=== PATIENT | female | born 1940 | race Caucasian/White ===

== ENCOUNTER 2018-01-21 00:49 | Emergency (ER) | payer MEDICARE ==
[2018-01-21] MEDS: NS 1,000 ML IV ×2 (01:45)
[2018-01-21] MEDS: ONDANSETRON 4MG/2ML VIAL (J2405) IV ×2 (01:49)
[2018-01-21 02:08] LABS: BASO % 0.1 % (0.0-1.0); HEMATOCRIT 36.7 % (36.0-47.0); HEMOGLOBIN 12.3 g/dl (12.0-15.5); IMMATURE GRANULOCYTE % 0.1 % (0-3.0); LYMPH # 0.5 10^3/uL (1.5-4.5); LYMPH % 7.6 % (24.0-44.0); MEAN CORPUSCULAR HEMOGLOBIN 29.9 pg (27.0-33.0); MEAN CORPUSCULAR HGB CONC 33.5 g/dl (32.0-36.5); MEAN CORPUSCULAR VOLUME 89.1 fl (80.0-96.0); MONO # 0.3 10^3/uL (0.0-0.8); MONO % 4.3 % (0.0-5.0); NEUTROPHILS # 5.9 10^3/uL (1.8-7.7); NEUTROPHILS % 87.9 % (36.0-66.0); PLATELET COUNT, AUTOMATED 150 10^3/uL (150-450); RED BLOOD COUNT 4.12 10^6/uL (4.00-5.40); RED CELL DISTRIBUTION WIDTH 13.1 % (11.5-14.5); WHITE BLOOD COUNT 6.8 10^3/uL (4.0-10.0)
[2018-01-21 02:32] LABS: ALBUMIN 3.4 GM/DL (3.2-5.2); ALBUMIN/GLOBULIN RATIO 1.06 (1.00-1.93); ALKALINE PHOSPHATASE 52 U/L (45-117); ALT/SGPT 18 U/L (12-78); ANION GAP 11 MEQ/L (8-16); AST/SGOT 20 U/L (7-37); BILIRUBIN,DIRECT 0.2 MG/DL (0.0-0.2); BILIRUBIN,TOTAL 0.5 MG/DL (0.2-1.0); BLOOD UREA NITROGEN 21 MG/DL (7-18); CALCIUM LEVEL 8.6 MG/DL (8.8-10.2); CARBON DIOXIDE LEVEL 25 MEQ/L (21-32); CHLORIDE LEVEL 104 MEQ/L (98-107); CK-MB VALUE MASS 1.6 NG/ML (<3.6); CPK CREATINE PHOSPHOKINASE 121 U/L (26-192); CREATININE FOR GFR 0.94 MG/DL (0.55-1.30); GLOMERULAR FILTRATION RATE > 60.0 (>39); GLUCOSE, FASTING 145 MG/DL (70-100); LIPASE 83 U/L (73-393); MB/CK RELATIVE INDEX 1.32 (< OR =4); POTASSIUM SERUM 3.2 MEQ/L (3.5-5.1); SODIUM LEVEL 140 MEQ/L (136-145); TOTAL PROTEIN 6.6 GM/DL (6.4-8.2); TROPONIN I < 0.02 NG/ML (< 0.10)
[2018-01-21] MEDS: KETOROLAC 30 MG/ML VIAL (J1885) IV ×2 (02:57)
[2018-01-21] MEDS: POTASSIUM CHLORIDE 10 MEQ SR TABLET PO ×2 (03:00)
== END 2018-01-21 03:57 | disposition home or self-care (01) ==
LOC: M ED 00:49
DX: K52.9 Noninfective gastroenteritis and colitis, unspecified (principal); E87.6 Hypokalemia
CPT/HCPCS: J2405

== ENCOUNTER → 2018-02-03 | Outpatient (REF) | payer MEDICARE | LOC: M LAB REF 18:27 | DX: R10.84 Generalized abdominal pain (principal); R19.7 Diarrhea, unspecified ==

== ENCOUNTER → 2018-02-03 | Outpatient (REF) | payer MEDICARE | LOC: M LAB REF 19:45 | DX: R19.7 Diarrhea, unspecified (principal); Z79.899 Other long term (current) drug therapy | CPT/HCPCS: 87086 ==

== ENCOUNTER → 2018-02-03 | Outpatient (CLI) | payer MEDICARE ==
[2018-02-03 12:21] LABS: BASO % 0.2 % (0.0-1.0); EOS % 0.5 % (0.0-3.0); HEMATOCRIT 41.3 % (36.0-47.0); HEMOGLOBIN 13.3 g/dl (12.0-15.5); IMMATURE GRANULOCYTE % 0.3 % (0-3.0); LYMPH # 1.6 10^3/uL (1.5-4.5); LYMPH % 17.9 % (24.0-44.0); MEAN CORPUSCULAR HGB CONC 32.2 g/dl (32.0-36.5); MEAN CORPUSCULAR VOLUME 93.2 fl (80.0-96.0); MONO # 0.5 10^3/uL (0.0-0.8); NEUTROPHILS # 6.7 10^3/uL (1.8-7.7); NEUTROPHILS % 75.1 % (36.0-66.0); PLATELET COUNT, AUTOMATED 242 10^3/uL (150-450); RED BLOOD COUNT 4.43 10^6/uL (4.00-5.40); RED CELL DISTRIBUTION WIDTH 13.5 % (11.5-14.5); WHITE BLOOD COUNT 8.9 10^3/uL (4.0-10.0)
[2018-02-03 14:14] LABS: ALBUMIN/GLOBULIN RATIO 1.18 (1.00-1.93); ALKALINE PHOSPHATASE 64 U/L (45-117); ALT/SGPT 31 U/L (12-78); ANION GAP 9 MEQ/L (8-16); AST/SGOT 21 U/L (7-37); BILIRUBIN,TOTAL 0.6 MG/DL (0.2-1.0); BLOOD UREA NITROGEN 16 MG/DL (7-18); CALCIUM LEVEL 10.6 MG/DL (8.8-10.2); CARBON DIOXIDE LEVEL 27 MEQ/L (21-32); CHLORIDE LEVEL 107 MEQ/L (98-107); CREATININE FOR GFR 0.81 MG/DL (0.55-1.30); FREE T4 1.21 NG/DL (0.76-1.46); GLOMERULAR FILTRATION RATE > 60.0 (>39); GLUCOSE, FASTING 113 MG/DL (70-100); POTASSIUM SERUM 3.8 MEQ/L (3.5-5.1); SODIUM LEVEL 143 MEQ/L (136-145); TOTAL PROTEIN 7.4 GM/DL (6.4-8.2)
== END ==
LOC: M ADAMS 09:09
DX: R10.84 Generalized abdominal pain (principal); R19.7 Diarrhea, unspecified
CPT/HCPCS: 84443

== ENCOUNTER 2018-02-10 07:28 | Emergency (ER) | payer MEDICARE ==
[2018-02-10] MEDS: NS 1,000 ML IV (07:57)
[2018-02-10] MEDS: ONDANSETRON 4MG/2ML VIAL (J2405) IV (08:00)
[2018-02-10 08:14] LABS: BASO % 0.3 % (0.0-1.0); EOS % 0.6 % (0.0-3.0); HEMATOCRIT 39.4 % (36.0-47.0); HEMOGLOBIN 12.8 g/dl (12.0-15.5); IMMATURE GRANULOCYTE % 0.5 % (0-3.0); LYMPH # 1.2 10^3/uL (1.5-4.5); LYMPH % 19.1 % (24.0-44.0); MEAN CORPUSCULAR HGB CONC 32.5 g/dl (32.0-36.5); MEAN CORPUSCULAR VOLUME 92.5 fl (80.0-96.0); MONO # 0.4 10^3/uL (0.0-0.8); MONO % 6.8 % (0.0-5.0); NEUTROPHILS # 4.7 10^3/uL (1.8-7.7); NEUTROPHILS % 72.7 % (36.0-66.0); PLATELET COUNT, AUTOMATED 224 10^3/uL (150-450); RED BLOOD COUNT 4.26 10^6/uL (4.00-5.40); RED CELL DISTRIBUTION WIDTH 13.4 % (11.5-14.5); WHITE BLOOD COUNT 6.5 10^3/uL (4.0-10.0)
[2018-02-10 08:38] LABS: ALBUMIN 3.9 GM/DL (3.2-5.2); ALBUMIN/GLOBULIN RATIO 1.18 (1.00-1.93); ALKALINE PHOSPHATASE 64 U/L (45-117); ALT/SGPT 28 U/L (12-78); ANION GAP 8 MEQ/L (8-16); AST/SGOT 22 U/L (7-37); BILIRUBIN,DIRECT 0.2 MG/DL (0.0-0.2); BILIRUBIN,TOTAL 0.7 MG/DL (0.2-1.0); BLOOD UREA NITROGEN 13 MG/DL (7-18); CALCIUM LEVEL 9.9 MG/DL (8.8-10.2); CARBON DIOXIDE LEVEL 27 MEQ/L (21-32); CHLORIDE LEVEL 107 MEQ/L (98-107); CREATININE FOR GFR 0.78 MG/DL (0.55-1.30); GLOMERULAR FILTRATION RATE > 60.0 (>39); GLUCOSE, FASTING 116 MG/DL (70-100); LIPASE 158 U/L (73-393); POTASSIUM SERUM 3.8 MEQ/L (3.5-5.1); SODIUM LEVEL 142 MEQ/L (136-145); TOTAL PROTEIN 7.2 GM/DL (6.4-8.2)
[2018-02-10 08:43] LABS: KETONE, URINE AUTO RFX NEGATIVE (NEGATIVE); LEUKOCYTE ESTERASE UR AUTO RFX NEGATIVE (NEGATIVE); NITRITE, URINE AUTO RFX NEGATIVE (NEGATIVE); RBC, URINE AUTO RFX 2 /HPF (0-3); SPECIFIC GRAVITY UR AUTO RFX 1.004 (1.002-1.035); SQUAM EPITHELIAL CELL UR AURFX 0 /HPF (0-6); WBC, URINE AUTO RFX 0 /HPF (0-3)
[2018-02-10] MEDS: GASTROGRAFIN SOLUTION 30ML PO ×2 (09:02→09:30)
[2018-02-10] MEDS ORDERED: ISOVUE-370 76% 100ML VIAL (Q9967) As Ordered (10:23)
[2018-02-10] MEDS: CIPROFLOXACIN 500 MG TAB PO (12:55)
[2018-02-10] MEDS: LISINOPRIL 20 MG TAB PO (12:56)
[2018-02-10] MEDS: metroNIDAZOLE (FLAGYL) 500 MG TAB PO (12:56)
[2018-02-10] MEDS: hydroCHLOROthiazide 25 MG TAB PO (12:56)
== END 2018-02-10 13:45 | disposition home or self-care (01) ==
LOC: M ED 07:28
DX: K57.90 Diverticulosis of intestine, part unspecified, without perforation or abscess without bleeding (principal); I10 Essential (primary) hypertension; K80.20 Calculus of gallbladder without cholecystitis without obstruction; M62.81 Muscle weakness (generalized); R26.89 Other abnormalities of gait and mobility; Z87.891 Personal history of nicotine dependence; Z79.899 Other long term (current) drug therapy
CPT/HCPCS: Q9963

== ENCOUNTER → 2018-02-24 | Outpatient (REF) | payer MEDICARE ==
[2018-02-24 12:25] LABS: BASO % 0.6 % (0.0-1.0); EOS # 0.1 10^3/uL (0.0-0.50); HEMOGLOBIN 12.5 g/dl (12.0-15.5); IMMATURE GRANULOCYTE % 0.6 % (0-3.0); LYMPH # 1.3 10^3/uL (1.5-4.5); LYMPH % 26.4 % (24.0-44.0); MEAN CORPUSCULAR HEMOGLOBIN 29.6 pg (27.0-33.0); MEAN CORPUSCULAR HGB CONC 32.9 g/dl (32.0-36.5); MEAN CORPUSCULAR VOLUME 89.8 fl (80.0-96.0); MONO # 0.4 10^3/uL (0.0-0.8); MONO % 8.5 % (0.0-5.0); NEUTROPHILS # 3.1 10^3/uL (1.8-7.7); NEUTROPHILS % 62.9 % (36.0-66.0); PLATELET COUNT, AUTOMATED 196 10^3/uL (150-450); RED BLOOD COUNT 4.23 10^6/uL (4.00-5.40); RED CELL DISTRIBUTION WIDTH 13.6 % (11.5-14.5); WHITE BLOOD COUNT 4.9 10^3/uL (4.0-10.0)
[2018-02-24 12:51] LABS: TOTAL 25(OH) VITAMIN D 17.8 NG/ML (30.0-100.0)
[2018-02-24 13:21] LABS: ALBUMIN 3.8 GM/DL (3.2-5.2); ALBUMIN/GLOBULIN RATIO 1.31 (1.00-1.93); ALKALINE PHOSPHATASE 47 U/L (45-117); ALT/SGPT 27 U/L (12-78); ANION GAP 10 MEQ/L (8-16); AST/SGOT 24 U/L (7-37); BILIRUBIN,TOTAL 0.7 MG/DL (0.2-1.0); BLOOD UREA NITROGEN 14 MG/DL (7-18); CALCIUM LEVEL 9.5 MG/DL (8.8-10.2); CARBON DIOXIDE LEVEL 28 MEQ/L (21-32); CHLORIDE LEVEL 105 MEQ/L (98-107); CHOLESTEROL LEVEL 193 MG/DL (<200); CHOLESTEROL RISK RATIO 2.924 (<5); CREATININE FOR GFR 0.73 MG/DL (0.55-1.30); GLOMERULAR FILTRATION RATE > 60.0 (>39); GLUCOSE, FASTING 107 MG/DL (70-100); HDL CHOLESTEROL 66 MG/DL (>40); NON-HDL-C 127 MG/DL; POTASSIUM SERUM 3.3 MEQ/L (3.5-5.1); SODIUM LEVEL 143 MEQ/L (136-145); TOTAL PROTEIN 6.7 GM/DL (6.4-8.2); TRIGLYCERIDES LEVEL 85 MG/DL (<150)
== END ==
LOC: M SFHCADAM 08:21
DX: K57.92 Diverticulitis of intestine, part unspecified, without perforation or abscess without bleeding (principal); I10 Essential (primary) hypertension; Z79.899 Other long term (current) drug therapy
CPT/HCPCS: 84443

== ENCOUNTER → 2018-09-28 | Outpatient (REF) | payer MEDICARE ==
[~2018-09-28] MED LIST: CIPR-249 PO; FLAG500T PO; ZEST1TAB3 PO; ZOFR4TAB14 PO
[2018-09-28 14:22] LABS: ALBUMIN 4.3 GM/DL (3.2-5.2); ALT/SGPT 21 U/L (12-78); BILIRUBIN,TOTAL 0.6 MG/DL (0.2-1.0); BLOOD UREA NITROGEN 24 MG/DL (7-18); CALCIUM LEVEL 9.9 MG/DL (8.8-10.2); CARBON DIOXIDE LEVEL 27 MEQ/L (21-32); CHLORIDE LEVEL 101 MEQ/L (98-107); CREATININE FOR GFR 0.88 MG/DL (0.55-1.30); GLOMERULAR FILTRATION RATE > 60.0 (>39); GLUCOSE, FASTING 90 MG/DL (70-100); POTASSIUM SERUM 3.8 MEQ/L (3.5-5.1); SODIUM LEVEL 138 MEQ/L (136-145); TOTAL PROTEIN 7.4 GM/DL (6.4-8.2)
[2018-09-28 14:30] LABS: TOTAL 25(OH) VITAMIN D 23.2 NG/ML (30.0-100.0)
[2018-09-28 15:14] LABS: HEMOGLOBIN A1c 5.7 %
== END ==
LOC: M SFHCADAM 10:41
PROVIDERS: ATTEND Physician Assistant Medical
DX: I10 Essential (primary) hypertension (principal); E55.9 Vitamin D deficiency, unspecified; R73.01 Impaired fasting glucose
CPT/HCPCS: 80053; 82306; 83036; G0463

== ENCOUNTER 2019-10-04 23:14 | Inpatient (IN) | payer MEDICARE ==
[~2019-10-04] VITALS: Ht 167.6 cm; Wt 83.5 kg
[2019-10-04] MEDS ORDERED: LOSA100T5 PO (23:20)
[2019-10-04] MEDS ORDERED: NS 500 ML IV ONE (23:45)
[2019-10-04] MEDS ORDERED: MORPHINE 2 MG/ML 1ML VIAL (J2270) IV ONE (23:45)
[2019-10-05 00:21] LABS: BASO % 0.1 % (0.0-1.0); EOS # 0.1 10^3/uL (0.0-0.5); EOS % 0.4 % (0.0-3.0); HEMATOCRIT 39.6 % (36.0-47.0); HEMOGLOBIN 13.3 g/dl (12.0-15.5); LYMPH # 1.9 10^3/uL (1.5-5.0); LYMPH % 14.4 % (24.0-44.0); MEAN CORPUSCULAR HEMOGLOBIN 30.5 pg (27.0-33.0); MEAN CORPUSCULAR HGB CONC 33.6 g/dl (32.0-36.5); MEAN CORPUSCULAR VOLUME 90.8 fl (80.0-96.0); MONO # 0.8 10^3/uL (0.0-0.8); MONO % 6.1 % (0.0-5.0); NEUTROPHILS # 10.6 10^3/uL (1.5-8.5); NEUTROPHILS % 78.3 % (36.0-66.0); PLATELET COUNT, AUTOMATED 262 10^3/uL (150-450); RED BLOOD COUNT 4.36 10^6/uL (4.00-5.40); WHITE BLOOD COUNT 13.5 10^3/uL (4.0-10.0)
[2019-10-05 00:46] LABS: CALCIUM LEVEL 10.3 MG/DL (8.8-10.2); CREATININE FOR GFR 1.1 MG/DL (0.55-1.30); GLOMERULAR FILTRATION RATE 50.9 (>32); POTASSIUM SERUM 3.8 MEQ/L (3.5-5.1)
--- NOTE | 2019-10-05 01:30 | REPVR ---
PROCEDURE INFORMATION: Exam: US Duplex Left Lower Extremity Veins, Limited Exam date and time: 10/05/2019 12:51 AM Age: 79 years old Clinical indication: Pain; Leg, upper; Left TECHNIQUE: Imaging protocol: Real-time Duplex ultrasound of the Left Lower Extremity with 2-D bowling scale, color Doppler flow and spectral waveform analysis with image documentation. Limited exam focused on the left lower extremity veins. COMPARISON: No relevant prior studies available. FINDINGS: Left deep veins: Unremarkable. The common femoral, femoral, proximal profunda femoral and popliteal veins are patent without thrombus. Normal Doppler waveforms. Normal compressibility and/or augmentation response. Left superficial veins: Unremarkable. Saphenofemoral junction is patent without thrombus. Soft tissues: There is a popliteal fossa cyst measuring 4.5 x 2.6 x 1.2 cm. IMPRESSION: 1. No deep vein thrombosis. 2. Popliteal fossa cyst. Electronically signed by: Oc James On 10/05/2019 01:30:13 AM
[2019-10-05] MEDS ORDERED: ISOVUE-370 76% 100ML VIAL (Q9967) As Ordered ONE (02:33)
--- NOTE | 2019-10-05 03:08 | REPVR ---
PROCEDURE INFORMATION: Exam: CT Abdomen And Pelvis With Contrast Exam date and time: 10/05/2019 2:23 AM Age: 79 years old Clinical indication: Pain; Other: Left thigh TECHNIQUE: Imaging protocol: Computed tomography of the abdomen and pelvis with intravenous contrast. Radiation optimization: All CT scans at this facility use at least one of these dose optimization techniques: automated exposure control; mA and/or kV adjustment per patient size (includes targeted exams where dose is matched to clinical indication); or iterative reconstruction. Contrast material: ISO; Contrast volume: 100 ml; Contrast route: AC; COMPARISON: CT ABD/PEL W/IV ORAL CONTRAS 02/10/2018 10:24 AM FINDINGS: Liver: Normal. No mass. Gallbladder and bile ducts: At least 2 calculi are noted in the gallbladder. No gallbladder wall thickening or pericholecystic fluid. No biliary duct dilation. Pancreas: Normal. No ductal dilation. Spleen: Normal. No splenomegaly. Adrenals: Normal. No mass. Kidneys and ureters: Normal. No hydronephrosis. Stomach and bowel: There is mild colonic diverticulosis without evidence of diverticulitis. The small bowel is unremarkable. No bowel obstruction. Appendix: No evidence of appendicitis. Intraperitoneal space: No intraperitoneal hemorrhage or free fluid. Retroperitoneal space: No other retroperitoneal hemorrhage is seen. Vasculature: Aortoiliac atherosclerotic disease is present without aneurysm or dissection. Lymph nodes: Unremarkable. No enlarged lymph nodes. Bladder: Unremarkable as visualized. Reproductive: There has been prior hysterectomy. Bones/joints: There are advanced degenerative changes in the spine and pelvis. Severe spinal stenosis at L3-L4, L4-L5, and L5-S1. Soft tissues: There is asymmetric enlargement of the left psoas, iliacus, and ileopsoas muscles. Subtle areas of enhancement is noted in the enlarged left psoas muscle on images 57 and 75 of series 201 suggesting contrast extravasation within the muscle. IMPRESSION: 1. Asymmetric enlargement of the left ileo psoas musculature concerning for intramuscular hematoma with suspected area of contrast extravasation within the psoas muscle. No other hemorrhage is seen. 2. Advanced degenerative spondylosis with multilevel spinal stenosis in the lower lumbar spine. 3. Colonic diverticulosis without evidence of diverticulitis. 4. Gallbladder calculi without evidence of cholecystitis or biliary duct dilation. Electronically signed by: Oc James On 10/05/2019 03:08:15 AM
[2019-10-05] MEDS ORDERED: MORPHINE 4 MG/ML 1ML VIAL/SYRINGE (J2270) IV ONE (03:30)
--- NOTE | 2019-10-05 03:53 | HPEPDOC ---
[facility] Medical History & Physical Date of Admission Oct 05, 2019 Date of Service: Oct 05, 2019 Primary Care Physician: STEWART HWANG PA-C Attending Physician: Cruz Sun MD History and Physical CHIEF COMPLAINT: left groin and leg pain. HISTORY OF PRESENT ILLNESS: Patient is an 79-year-old female, past medical history significant for hypertension, right foot drop, diverticulitis, impaired fasting glucose, who presented to the emergency department on 10/04/19 via EMS complaining of sudden- onset left sided groin and leg pain. Patient states that the pain began at approximately 0400 the morning of presentation and awoke her from sleep. She described the pain as 10 out of 10 and excruciating. Nonradiating. Her pain significantly improves when she is seated upright 90. She states that her pain greatly increases when she lies flat or makes any movement with her lower extremity. Throughout the day, she was able to cope utilizing Tylenol and remaining upright. However, when patient went to sleep this evening, her pain was so severe, that she contacted EMS. She denies any inciting event or recent trauma. She has not fallen. Patient does not take anticoagulation or daily aspirin. She has not been using NSAIDs since diagnosed with diverticulitis. She does, however, report that the night prior, she was doing some physical therapy exercises with her right leg. She does not recall any pain or discomfort immediately thereafter. Initial laboratory investigation did reveal a WBC of 13.5, neutrophil predominance. CBC showed a sodium of 133, BUN/Cr of 29/1.1. Fasting glucose of 147. Calcium of 10.3. Total CK was within normal limits of 109. Abdomen/pelvis CT was performed which demonstrated a suspected intramuscular iliopsoas hematoma on the left. Vascular ultrasound performed on the extremity was negative other than a popliteal cyst. Femur x-ray appears negative for any fracture or dislocation. Patient was treated with IV fluids, 2 mg and a subsequent 4 mg of IV morphine with good relief. Given patient's imaging findings, Hospital see him was contacted for admission for further workup and evaluation. REVIEW OF SYSTEMS: CONSTITUTIONAL: Denies any history of fevers, chills, night sweats or changes in weight. No changes in appetite. HEENT: Reports occasional headaches amenable to OTC treatment. Denies any vision changes, no hearing changes, difficulty swallowing CARDIOVASCULAR: Denies chest pain, palpitations, syncope RESPIRATORY: No current cough or wheeze. No shortness of breath. Denies any orthopnea or PND. GASTROINTESTINAL: No history of significant reflux, abdominal pain. Patient does report intermittent constipation usually controlled with [id number] medications. GENITOURINARY: No difficulties urinating SKIN: Denies any rashes, lesions, bruises MUSCULOSKELETAL: Patient reports significant left sided groin pain, worse when laying flat or motion, improved with sitting up. NEUROLOGICAL: Reports right sided foot drop, unclear etiology, has been seen in [place] for many years. She states that one physician did diagnose her with ALS though after receiving a second opinion, this diagnosis was called into question. Denies any bladder or bowel incontinence or saddle anesthesia. PSYCHIATRIC: Denies any history of depression ENDOCRINE: Denies heat/cold intolerance HEMATOLOGIC/LYMPHATIC: Denies any history of recent or easy bruising. PAST MEDICAL/ SURGICAL HISTORY: Hypertension History of foot drop, unclear etiology, question of previous ALS diagnosis, disputed by second opinion Basal cell carcinoma of nose, follows with an [facility] Diverticulitis, 2018 Vitamin D deficiency Impaired fasting glucose Hysterectomy, 30+ years ago Cataract surgery, 2019 SOCIAL HISTORY: Marital status: Resides in: Alone at home with Employment: Retired Tobacco use: Patient is a former smoker, has not smoked in greater than 30 years ETOH: Patient reports a single glass of red wine on a daily basis with dinner. Illicit drug use: Denies any illicit drug use including IV drugs or marijuana. Other relevant social factors: Patient lives with her , utilizes lower extremity braces for ambulation. At home, patient gets around using a wheelchair. FAMILY HISTORY: Father: , 89 years old. No known medical problems Mother: , 94 years old, no no medical problems Siblings: Alive, one brother who is healthy, one sister with breast cancer Children: One daughter, 60 years old, diagnosed with MS Hereditary Diseases: Denies any family history of heart disease, stroke, pancreatic or colon cancer ALLERGIES: No known allergies HOME MEDICATIONS: Losartan PotassiumHCTZ 01393 mg tablet orally once daily PHYSICAL EXAMINATION: VITAL SIGNS: Temperature 97.7, pulse 107, respiratory rate 18, blood pressure 163/76, pulse oximetry 97% on room air. GENERAL APPEARANCE: Patient was interviewed and examined in the emergency department. Patient was found sitting upright on her stretcher quietly resting, in no acute distress. Patient was alert and oriented 3. She was able to appropriately answer questions regarding her medical history. HEENT: Normocephalic, atraumatic, EOMI, PERRLA, sclera nonicteric, no conjunctival injection. Fair oral hygiene, mucous membranes moist, no posterior pharyngeal erythema or tonsillar swelling/exudates. No JVD or carotid bruits. No cervical lymphadenopathy. CARDIOVASCULAR: Slightly tachycardic with regular rhythm, no murmurs auscultated LUNGS: Clear to auscultation bilaterally in both anterior and posterior lung tracy. No wheezing rales or rhonchi ABDOMEN: No bruising or obvious lesions on inspection. Soft, nontender, nondistended. No appreciable organomegaly. No guarding. MUSCULOSKELETAL: Patient does have a right sided foot drop with unclear etiology, present for many years. Patient's left foot does demonstrate moderate external rotation secondary to ligamentous injury years ago. EXTREMITIES: Trace lower extremity edema bilaterally. No calf tenderness bilaterally. No skin lesions noted. Both posterior tibial and radial pulses are 2+ bilaterally. Capillary refill less than 2 seconds. NEUROLOGICAL: Alert and oriented 3. Right sided lower extremity weakness, chronic. Patient is able to move her toes bilaterally. Sensation is equal in the lower extremities. No suprapatellar numbness, paresthesia or lack of sensation. Strength is 5 out of 5 in upper extremities. No focal neurologic deficits are identified. PSYCHIATRIC: Mood and affect are appropriate given patient's current medical condition. LABORATORY DATA: 10/05/19 00:14 10/05/19 04:26 Anion Gap 11, Glomerular Filtration Rate 50.9, Calcium Level 10.3H, Total Creatine Kinase 109 IMAGING: CT abdomen pelvis (10/05/19): Asymmetric enlargement of the left iliopsoas musculature concerning for intramuscular hematoma with suspected area of contrast extravasation within the psoas muscle. No other hemorrhages seen. Advanced degenerative spondylosis with multilevel spinal stenosis in the lower lumbar spine. Colonic diverticulosis without evidence of diverticulitis. Gallbladder calculi without evidence of cholecystitis or biliary duct dilation. Vascular ultrasound (10/04/19): No deep vein thrombosis. Popliteal fossa cyst. Femur x-ray (10/05/19): Pending official radiologic read. No obvious fractures or dislocations. No lytic or blastic lesions. ASSESSMENT: Patient is an 79-year-old female, past medical history significant for hypertension, right foot drop, diverticulitis, who presented to the emergency department via EMS on 10/05/19 with a chief complaint of excruciating left groin and upper leg pain. Patient states that the pain began suddenly at approximately 0400 the morning of presentation, suddenly, waking her from sleep. PLAN: #Left sided iliopsoas hematoma. Patient denies any inciting/traumatic events. Etiology is most likely related to her advanced age and history of performing a basic conditioning exercises the night prior to the start of her pain. Patient is not on anticoagulation therapy. -Continue to monitor for lower extremity neurologic signs related to femoral/obturator nerve compression. First neurologic symptom will likely present as hypoesthesia in the suprapatellar area. Type and screen in the event that patient is in need of transfusion. Initial H&H upon presentation was 13.3/39.6. Repeat evaluation 4 hours later demonstrated a value of 9.7/29.4. Consider a partial dilutional component s/p ED bolus. We will repeat an H&H at 0800 and serially thereafter. Surgical/IR consult to determine if operative intervention, including embolization or percutaneous drainage, is required. Patient will be kept NPO. Conservative treatment at this time, considering patient's vitals are stable and she does not have any indication of neurologic dysfunction. Natural evolution is spontaneous resolution. Continue with adequate pain control. Tylenol as first-line, morphine if necessary. #Chronic Hypertension Patient is been slightly hypertensive while in the emergency department. We'll continue patient's home medication of losartan 100 mg and hydrochlorothiazide 25 mg daily. #Hypercalcemia Repeat BMP PTH and vitamin D for primary hyperparathyroidism DVT PROPHYLAXIS: Teds and sequentials DISPOSITION: Anticipate at least 2 night stay Home Medications Scheduled Cholecalciferol (Vitamin D3) (Vitamin D3) 1,000 Unit Tablet, 1,000 UNITS PO DAILY Losartan/Hydrochlorothiazide (Losartan-Hctz 100-25 mg Tab) 1 Each Tablet, 1 TAB PO DAILY Scheduled PRN Acetaminophen (Tylenol Extra Strength) 500 Mg Tablet, 500 MG PO Q4H PRN for PAIN / FEVER Hydrocortisone (Hydrocortisone) 28 Gm Cream..g., 1 DOSE EXT BID PRN for RASH Nystatin (Nystatin Powder) 15 Gm Powder, 1 DOSE TOP BID PRN for RASH USES ON GROIN AREA NEEDED Allergies Coded Allergies: No Known Allergies (Unverified , 01/21/18) A-FIB/CHADSVASC A-FIB History Current/History of A-Fib/PAF?: No GME ATTESTATION GME ATTESTATION My faculty preceptor for this patient encounter was physically present during the encounter and was fully available. All aspects of the patient interview, examination, medical decision making process, and medical care plan development were reviewed and approved by the faculty preceptor. The faculty preceptor is aware and concurs with the plan as stated in the body of this note and will attest to such by his/her cosignature. ATTENDING NOTE TIME OF SERVICE 440AM is an 79 yr old W a PMH of HTN who is admitted for management of il opsoas hematoma of unclear cause . She denies using any anticoagulants including ASA. Since her Hg has dropped >3 units in the last few hours per d/w we will keep her NPO for possible TCE. Rest per 's note which I edited and reviewed. MOODY EGAN DO Oct 05, 2019 03:53 GAIL CARDONA MD Oct 05, 2019 19:09
[2019-10-05] MEDS ORDERED: ACETAMINOPHEN TAB 650MG DOSE (2X325MG) PO PRN (04:15)
[2019-10-05] MEDS ORDERED: MAALOX 30 ML SUSP *UDC PO PRN (04:15)
[2019-10-05] MEDS ORDERED: MOM 30ML SUSPENSION UDC PO PRN (04:15)
[2019-10-05] MEDS ORDERED: NYST1POW9 TOP (04:23)
[2019-10-05] MEDS ORDERED: VITAD1000T PO (04:23)
[2019-10-05] MEDS ORDERED: HYDR1CRE9 EXT (04:23)
[2019-10-05] MEDS ORDERED: LOSA100T5 PO (04:23)
[2019-10-05] MEDS ORDERED: ACET-897 PO (04:23)
[2019-10-05 04:38] LABS: BASO % 0.1 % (0.0-1.0); HEMATOCRIT 29.4 % (36.0-47.0); LYMPH # 0.7 10^3/uL (1.5-5.0); LYMPH % 8.1 % (24.0-44.0); MEAN CORPUSCULAR HEMOGLOBIN 30.1 pg (27.0-33.0); MEAN CORPUSCULAR VOLUME 91.3 fl (80.0-96.0); MONO # 0.2 10^3/uL (0.0-0.8); MONO % 2.3 % (0.0-5.0); NEUTROPHILS # 8.1 10^3/uL (1.5-8.5); PLATELET COUNT, AUTOMATED 185 10^3/uL (150-450); RED BLOOD COUNT 3.22 10^6/uL (4.00-5.40); WHITE BLOOD COUNT 9.1 10^3/uL (4.0-10.0)
[2019-10-05 04:39] LABS: HEMOGLOBIN 9.7 g/dl (12.0-15.5)
[2019-10-05 06:29] LABS: INR 1.02; PROTHROMBIN TIME 13.1 SECONDS (11.8-14.0)
--- NOTE | 2019-10-05 07:46 | REP ---
Left femur seven views: There are no comparisons. On the lateral view the patella appears elevated superiorly, suggesting patella nick. There is no joint effusion. Images of the femoral head are all underpenetrated and suboptimal. No fracture is identified elsewhere. Diffuse demineralization. Impression: The patella nick. No fracture. Images of the femoral head are suboptimal. The Electronically Signed by Keshawn Juarez MD 10/05/2019 07:38 A
[2019-10-05 09:05] VITALS: BP 176/72
--- NOTE | 2019-10-05 10:03 | IPNPDOC ---
Subjective Date Seen The patient was seen on 10/05/19. Subjective Chief Complaint/HPI iliopsoas hematoma Events since last encounter Admitted for iliopsoas muscle hematoma. Planned evacuation with embolization wi Dr. Portillo today. This occurred after performing physical therapy maneuvers at home. Denies taking anti-coagulants or NSAIDs recently. Pain is quite severe and poorly controlled with morphine 1 mg IV x 1. Given 2 mg IV x 1 with some improvement. Constitutional: Denies: Chills, Fever, Night Sweats ENT: Denies: Head Aches, Ear Pain, Dysphagia Skin: Denies: Rash, Lesions, Jaundice, Bruising, Itching, Dry, Breakdown, Nail Changes, Other Cardiovascular: Denies: Chest Pain, Palpitations, Orthopnea, Paroxysmal Noc. Dyspnea, Lt Headedness Gastrointestinal: Denies: Nausea, Vomiting, Abdominal Pain, Diarrhea, Constipation Genitourinary: Denies: Dysuria, Frequency, Incontinence, Retention Musculoskeletal: Reports: Other Symptoms (LLE pain) Objective Physical Examination General Exam: Positive: Alert, Mild Distress Eye Exam: Positive: PERRLA, Conjunctiva & lids normal, EOMI; Negative: Sclera icteric Chest Exam: Positive: Clear to auscultation, Normal air movement Heart Exam: Positive: Rate Normal, Tachycardic (when in pain), Regular Rhythm, Normal S1, Normal S2; Negative: Murmurs, Rubs Telemetry: Positive: No significant arrhythmia, Tachycardia Abdomen Exam: Positive: Normal bowel sounds, Soft; Negative: Tenderness, Hepatospenomegaly Extremity Exam: Positive: Other (unabel to examine due to pain. patient intoelrant to exam. + PP bilateral) Psych Exam: Positive: Mental status NL, Mood NL, Oriented x 3 Assessment /Plan Problems (1) Iliopsoas muscle hematoma Status: Acute Problem Text: H/H q 6 hrs. IF hgb trends down any further, will tranfuse. Consent signed. (2) Unable to ambulate Status: Acute Problem Text: PT to start 10/05 after hematoma treated with IR (3) Hypertension Status: Acute Problem Text: Continue home dose of HCTZ and Losartan. BP elevated today most likely due to pain Plan/VTE VTE Prophylaxis Ordered?: No VTE Exclusion Pharmacological: Active Bleeding VS, I&O, 24H, Fishbone Vital Signs/I&O Vital Signs Date Time Temp Pulse Resp B/P (MAP) Pulse Ox O2 Delivery O2 Flow Rate FiO2 10/05/19 06:35 109 16 112/56 (74) 93 Room Air 10/05/19 02:58 97.7 Laboratory Data 24H LABS Laboratory Tests 2 10/05/19 00:14: Immature Granulocyte % (Auto) 0.7, Neutrophils (%) (Auto) 78.3H, Lymphocytes (%) (Auto) 14.4L, Monocytes (%) (Auto) 6.1H, Eosinophils (%) (Auto) 0.4, Basophils (%) (Auto) 0.1, Neutrophils # (Auto) 10.6H, Lymphocytes # (Auto) 1.9, Monocytes # (Auto) 0.8, Eosinophils # (Auto) 0.1, Basophils # (Auto) 0.0, Nucleated Red Blood Cells % (auto) 0.0, Anion Gap 11, Glomerular Filtration Rate 50.9, Calcium Level 10.3H, Total Creatine Kinase 109 10/05/19 04:26: Immature Granulocyte % (Auto) 0.5, Neutrophils (%) (Auto) 89.0H, Lymphocytes (%) (Auto) 8.1L, Monocytes (%) (Auto) 2.3, Eosinophils (%) (Auto) 0.0, Basophils (%) (Auto) 0.1, Neutrophils # (Auto) 8.1, Lymphocytes # (Auto) 0.7L, Monocytes # (Auto) 0.2, Eosinophils # (Auto) 0.0, Basophils # (Auto) 0.0, Nucleated Red Blood Cells % (auto) 0.0 10/05/19 06:06: Prothrombin Time 13.1, Prothromb Time International Ratio 1.02 CBC/BMP Laboratory Tests 10/05/19 00:14 10/05/19 04:26 Alva Lauren PERSONAL FINANCIAL REPRESENTATIVE Oct 05, 2019 10:03
[2019-10-05 10:31] LABS: TOTAL 25(OH) VITAMIN D 37.3 NG/ML (30.0-100.0)
[2019-10-05] MEDS ORDERED: LIDOCAINE 1% MDV 20ML VIAL As Ordered ONE (10:49)
[2019-10-05] MEDS ORDERED: HEPARIN 1,000 UNITS/ML 10ML VIAL (FOR RADIOLOGY& DIALYSIS ONLY)(J1644-10) As Ordered ONE (10:49)
[2019-10-05] MEDS ORDERED: ISOVUE-300 61% 50ML VIAL (Q9967) As Ordered ONE ×2 (10:49→12:41)
[2019-10-05] MEDS: D5W/0.9% SODIUM CHLORIDE 1,000 ML IV SCH ×2 (10:52→22:20)
[2019-10-05] MEDS ORDERED: MORPHINE 2 MG/ML 1ML VIAL (J2270) IV ONE (11:00)
[2019-10-05] MEDS ORDERED: MIDAZOLAM INJ 2 MG/2 ML VIAL (J2250) As Ordered ONE (11:17)
[2019-10-05] MEDS ORDERED: fentaNYL 100 MCG/2 ML INJECTION (J3010) As Ordered ONE (11:17)
[2019-10-05] MEDS ORDERED: diphenhydrAMINE INJ 50MG/ML VIAL (J1200) As Ordered ONE (11:17)
[2019-10-05] MEDS: DOCUSATE SODIUM 100 MG CAP PO SCH ×2 (12:35→19:45)
--- NOTE | 2019-10-05 13:31 | POST-OPPD ---
Postoperative Procedure Note Date Of Procedure: Oct 05, 2019 Time Of Procedure: 13:30 PREOPERATIVE DIAGNOSIS: iliopsoas hematoma POSTOPERATIVE DIAGNOSIS: same FINDINGS: no active arterial extravasation PROCEDURE: angiogram, selective SURGEON: felecia ANESTHESIA: mod sed ESTIMATED BLOOD LOSS: < 5 ml COMPLICATIONS: none POSTOPERATIVE CONDITION: stable ALCIDES HOWARD MD Oct 05, 2019 13:31
[2019-10-05] MEDS ORDERED: PERCOCET 5MG/325MG TAB As Ordered ONE (13:55)
[2019-10-05] MEDS: PERCOCET 5MG/325MG TAB PO PRN ×2 (13:57→20:02)
[2019-10-05 14:25] VITALS: BP 166/74
[2019-10-05] MEDS: LOSARTAN 50 MG TAB PO SCH (14:32)
[2019-10-05] MEDS: hydroCHLOROthiazide 25 MG TAB PO SCH (14:32)
[2019-10-05] MEDS: VITAMIN D 1,000 INTERNATIONAL UNITS TABLET PO SCH (14:32)
[2019-10-05 15:00] VITALS: BP 110/52
[2019-10-05 16:00] VITALS: BP 141/92
[2019-10-05] MEDS: MORPHINE 2 MG/ML 1ML VIAL (J2270) IV PRN (16:29)
[2019-10-05 20:00] VITALS: BP 146/74
[2019-10-06] VITALS: BP 139/59
[2019-10-06] MEDS: PERCOCET 5MG/325MG TAB PO PRN ×4 (03:58→22:49)
[2019-10-06 04:00] VITALS: BP 145/69
[2019-10-06 05:29] LABS: ALBUMIN 3.2 GM/DL (3.2-5.2); BILIRUBIN,TOTAL 0.6 MG/DL (0.2-1.0); CALCIUM LEVEL 8.8 MG/DL (8.8-10.2); CREATININE FOR GFR 0.98 MG/DL (0.55-1.30); GLOMERULAR FILTRATION RATE 58.1 (>32); POTASSIUM SERUM 3.4 MEQ/L (3.5-5.1)
[2019-10-06 08:00] VITALS: BP 138/63
--- NOTE | 2019-10-06 08:36 | IPNPDOC ---
Subjective Date Seen The patient was seen on 10/06/19. Subjective Chief Complaint/HPI Pt this morning states that she is doing alright. She states that she cont to have pain in the top of her left leg, she was hoping that the vascular procedure would alleviate some of this discomfort. General: Denies: Fatigue Constitutional: Denies: Chills, Fever Pulmonary: Denies: Dyspnea, Cough Cardiovascular: Denies: Chest Pain, Palpitations Gastrointestinal: Denies: Nausea, Vomiting, Diarrhea Neurological: Reports: Weakness Psych: Reports: Mood Normal Objective Physical Examination General Exam: Positive: Alert, No Acute Distress ENT Exam: Positive: Mucous membr. moist/pink Chest Exam: Positive: Clear to auscultation, Normal air movement Heart Exam: Positive: Rate Normal, Regular Rhythm, Normal S1, Normal S2; Negative: Murmurs, Rubs Telemetry: Positive: No significant arrhythmia Abdomen Exam: Positive: Normal bowel sounds, Soft; Negative: Tenderness, Hepatospenomegaly Extremity Exam: Positive: Other (Pain with gentle palpation of the ant LLE); Negative: Edema Psych Exam: Positive: Mental status NL, Mood NL, Oriented x 3 Assessment /Plan Problems (1) Iliopsoas muscle hematoma Status: Acute Problem Text: 10/05 Cont with Hgb q6h, has orders through tomorrow morning. Hgb stable overnight at 10.4, dropped slightly yest afternoon/evening. Underwent angiogram with Dr Portillo yesterday, await report. Pt has PCU orders, can start PT today if OK with Dr Portillo. 10/04 H/H q 6 hrs. IF hgb trends down any further, will tranfuse. Consent signed. (2) Unable to ambulate Status: Acute Problem Text: PT to start 10/05 after hematoma treated with IR (3) Hypertension Status: Acute Problem Text: Continue home dose of HCTZ and Losartan. BP elevated today most likely due to pain Plan/VTE VTE Prophylaxis Ordered?: No VTE Exclusion Pharmacological: Active Bleeding VS, I&O, 24H, Fishbone Vital Signs/I&O Vital Signs Date Time Temp Pulse Resp B/P (MAP) Pulse Ox O2 Delivery O2 Flow Rate FiO2 10/06/19 04:28 20 10/06/19 04:00 97.2 102 145/69 (94) 94 Room Air 10/05/19 13:23 2 I&O- Last 24 Hours up to 6 AM 10/06/19 05:59 Intake Total 880 ml Output Total 575 ml Balance 305 ml Laboratory Data 24H LABS Laboratory Tests 2 10/06/19 04:27: Anion Gap 9, Glomerular Filtration Rate 58.1, Calcium Level 8.8, Total Bilirubin 0.6, Aspartate Amino Transf (AST/SGOT) 21, Alanine Aminotransferase (ALT/SGPT) 21, Alkaline Phosphatase 45, Total Protein 6.0L, Albumin 3.2, Albumin/Globulin Ratio 1.14 CBC/BMP Laboratory Tests 10/05/19 09:57 10/05/19 16:04 10/05/19 21:58 10/06/19 04:27 STEWART HWANG PA-C Oct 06, 2019 08:36
[2019-10-06] MEDS: hydroCHLOROthiazide 25 MG TAB PO SCH (09:03)
[2019-10-06] MEDS: VITAMIN D 1,000 INTERNATIONAL UNITS TABLET PO SCH (09:03)
[2019-10-06] MEDS: DOCUSATE SODIUM 100 MG CAP PO SCH ×2 (09:03→20:29)
[2019-10-06] MEDS: LOSARTAN 50 MG TAB PO SCH (09:04)
[2019-10-06] MEDS: POTASSIUM CHLORIDE 10 MEQ SR TABLET PO SCH (09:04)
--- NOTE | 2019-10-06 09:47 | IRINPTCON ---
[facility] IR Inpatient Consultation IR Inpatient Consultation DATE: Oct 05, 2019 REASON FOR CONSULTATION/CHIEF COMPLAINT: Left iliopsoas hematoma. HISTORY OF PRESENT ILLNESS: 79-year-old female presented to the hospital with 2 days of excruciating left flank and groin pain. This is worse with laying flat and movements. No relieving factors. No radiation. No fevers or chills. No recent trauma, blood thinners or procedures. No prior history of similar pain. Patient does suffer with chronic bilateral lower extremity pain which is different. ALLERGIES: Please see below. HOME MEDICATIONS: Please see below. PAST MEDICAL HISTORY: Hypertension History of foot drop Basal cell carcinoma nose Diverticulitis Vitamin D deficiency PAST SURGICAL HISTORY: Hysterectomy Cataract surgery FAMILY HISTORY: Noncontributory. SOCIAL HISTORY: Wheelchair bound. Needs help with activities of daily living. Former smoker. No alcohol or drugs. REVIEW OF SYSTEMS: Otherwise negative PHYSICAL EXAMINATION: VITAL SIGNS: Please see below. GENERAL APPEARANCE: Patient in distress. HEENT: No scleral icterus. RESPIRATORY: Normal breathing at rest. CARDIOVASCULAR: Mild tachycardia. ABDOMEN: Non-distended. EXTREMITIES: Edema bilateral lower extremities. Faint distal pulses. Femoral pulse 2+. NEUROLOGICAL: Alert and oriented. PSYCHIATRIC: Appropriate to circumstance. LABORATORY DATA: 10/05/2019 hemoglobin 9.7 hematocrit 29.4 WBC 9.1 platelets 185 sodium 133 potassium 3.8 BUN 29 creatinine 1.1 GFR 50.9 Imaging: I personally reviewed the CT abdomen and pelvis with IV contrast, performed 10/05/2019. Left iliopsoas hematoma with areas of hyperdensity indicating fresh blood. ASSESSMENT/PLAN: 79-year-old female with spontaneous left iliopsoas hematoma, not on blood thinners are otherwise coagulopathic with CT findings of acute hemorrhage. We discussed the risks and benefits of angiogram and embolization and patient would like to proceed. Patient scheduled for angiography and embolization if appropriate. I spent 30 minutes in consultation with the patient. Thank you for this referral. Allergies Coded Allergies: No Known Allergies (Unverified , 01/21/18) Home Medications Scheduled Cholecalciferol (Vitamin D3) (Vitamin D3), 1,000 UNITS PO DAILY, (Reported) Losartan/Hydrochlorothiazide (Losartan-Hctz 100-25 mg Tab), 1 TAB PO DAILY, (Reported) Scheduled PRN Acetaminophen (Tylenol Extra Strength), 500 MG PO Q4H PRN for PAIN / FEVER, (Reported) Hydrocortisone (Hydrocortisone), 1 DOSE EXT BID PRN for RASH, (Reported) Nystatin (Nystatin Powder), 1 DOSE TOP BID PRN for RASH, (Reported) Discontinued Medications Ciprofloxacin HCl (Cipro), 500 MG PO BID Discontinued Reason: Pt states not taking Lisinopril/Hydrochlorothiazide (Zestoretic 20-25 mg Tablet), 1 TAB PO DAILY Discontinued Reason: Pt states not taking Losartan/Hydrochlorothiazide (Losartan-Hctz 100-25 mg Tab), 1 TAB PO DAILY, (Reported) Discontinued Reason: Re-entering as new Metronidazole (Flagyl), 500 MG PO Q8H Discontinued Reason: Pt states not taking Ondansetron (Zofran Odt), 4 MG PO Q4H PRN for NAUSEA Discontinued Reason: Pt states not taking VS, I&O, 24H, Fishbone Vital Signs/I&O Vital Signs Date Time Temp Pulse Resp B/P (MAP) Pulse Ox O2 Delivery O2 Flow Rate FiO2 10/06/19 09:12 16 95 Room Air 10/06/19 09:04 138/63 10/06/19 08:00 97.2 96 10/05/19 13:23 2 I&O- Last 24 Hours up to 6 AM 10/06/19 06:00 Intake Total 1490 ml Output Total 825 ml Balance 665 ml Laboratory Data 24H LABS Laboratory Tests 2 10/06/19 04:27: Anion Gap 9, Glomerular Filtration Rate 58.1, Calcium Level 8.8, Total Bilirubin 0.6, Aspartate Amino Transf (AST/SGOT) 21, Alanine Aminotransferase (ALT/SGPT) 21, Alkaline Phosphatase 45, Total Protein 6.0L, Albumin 3.2, Albumin/Globulin Ratio 1.14 CBC/BMP Laboratory Tests 10/05/19 09:57 10/05/19 16:04 10/05/19 21:58 10/06/19 04:27 ALCIDES HOWARD MD Oct 06, 2019 09:47
--- NOTE | 2019-10-06 11:24 | REP ---
IR Aortogram. IR Selective left common iliac artery catheterization and angiogram. IR Selective lumbar artery catheterization and arteriogram. IR Selective left external iliac artery catheterization and arteriogram. IR moderate sedation. Clinical Information: Left iliopsoas hematoma. Physician: Dr Portillo.Procedure: The patient was advised of the benefits, risks, and alternatives of the procedure and informed consent was obtained.A time out was performed with verification of the patient's name, MRN, site of procedure, and type of procedure to be performed. The patient was positioned in the supine position on the angiographic table. The site was prepped and draped in the usual sterile fashion.Moderate sedation was performed by the physician including the presence of an independent trained observer who assisted in monitoring the patient's level of consciousness and physiological status. Following the administration of Fentanyl and Versed, the physician spent 90 minutes of continuous [id number] time with the patient. A mixing operator radiograph reveals no gross abnormality. The right femoral artery was accessed with a micropuncture kit. A [employer] wire was advanced into the aorta. The micropuncture sheath was exchanged over the wire for a a 6-Peruvian vascular sheath. A pigtail catheter was advanced over the wire and used to catheterize the suprarenal abdominal aorta. An aortogram was performed and this demonstrate patent bilateral renal arteries. Single right and 2 left renal arteries. Patent left common iliac, internal and external iliac arteries. No active extravasation over the left iliopsoas. The pigtail catheter was retracted down into the infrarenal abdominal aorta and pointed posteriorly. A repeat arteriogram was performed and this demonstrates bilateral lumbar arteries. No active extravasation. The pigtail catheter was exchanged over the wire for a glide cath. The glide cath was used to catheterize the left common iliac artery. An arteriogram was performed and this demonstrates patent left external and internal iliac artery branches. The ilio lumbar artery arising off the posterior division of the left internal iliac artery is seen and there is no active extravasation from its distal branches. The glide cath was used to catheterize the left external iliac artery. An arteriogram was performed and this demonstrates the deep iliac circumflex and inferior epigastric artery. No extravasation from the distal branches of the deep iliac circumflex. The catheter was exchanged over the wire for a Fermin one catheter. The Fermin one catheter was used to catheterize the L3-4 left lumbar artery. An arteriogram was performed and this demonstrates no active extravasation . The catheter was removed over a wire. A 6-Peruvian [employer] device was deployed at the right groin arteriotomy site and the sheath was removed, hemostasis achieved and a sterile dressing was applied to the site. Patient tolerated the procedure well and was transferred to PRU in stable condition. Complications: None. Estimated blood loss: Less than 5 ml. Impression: Aortogram, selective left internal iliac, external iliac and lumbar artery catheterization and angiography demonstrates no active arterial extravasation. No embolization was necessary. Thank you for this referral. Electronically Signed by Faviola Portillo MD 10/06/2019 11:23 A
[2019-10-06 12:00] VITALS: BP 132/65
--- NOTE | 2019-10-06 14:27 | IRPN ---
[facility] IR Progress Note IR Progress Note DATE: Oct 06, 2019 FOLLOW-UP: Day 2 status post angiography for left iliopsoas hematoma. No active extravasation seen. Patient doing okay. Not dizzy. No syncope. Complains of continued pain. ON EXAMINATION: Right groin access site soft nontender. No hematoma. No pul satile mass. Labs: 10/06/2019 hemoglobin 9.8 (12.2 on 10/05/2019) no blood transfusions administered. Sodium 136 potassium 3.4 BUN 29 creatinine 0.98 IMPRESSION: Doing well on conservative management of left iliopsoas hematoma. No active extravasation on angiography. Continue serial H&H. Transfuse as required. Rest of management per primary. Thank you for this referral Allergies Coded Allergies: No Known Allergies (Unverified , 01/21/18) Current Medications Current Medications Medications (Trade) Dose Ordered Sig/Jaime Route PRN Reason Start Time Stop Time Status Last Admin Dose Admin Acetaminophen (Tylenol Tab) 650 mg Q4H PRN PO PAIN OR FEVER 10/05/19 04:15 Al Hydrox/Mg Hydrox/Simethicone (Mylanta) 30 ml DAILY PRN PO DYSPEPSIA 10/05/19 04:15 Dextrose/Sodium Chloride 1,000 ml @ 70 mls/hr [id number] IV 10/05/19 08:00 10/06/19 08:51 DC 10/05/19 22:20 Docusate Sodium (Colace) 100 mg BID PO 10/05/19 09:00 10/06/19 09:03 Home Med (Med Rec Complete!) ASDIRECTED XX 10/05/19 04:30 10/05/19 04:25 DC Hydrochlorothiazide (Hydrodiuril) 25 mg QAM PO 10/05/19 09:00 10/06/19 09:03 Losartan Potassium (Cozaar) 100 mg QAM PO 10/05/19 09:00 10/06/19 09:04 Magnesium Hydroxide (Milk Of Magnesia) 30 ml DAILY PRN PO CONSTIPATION 10/05/19 04:15 Morphine Sulfate (Morphine Sulfate Inj) 1 mg Q4H PRN IV MODERATE PAIN (PS 5-7) 10/05/19 06:00 10/05/19 16:29 Oxycodone/ Acetaminophen (Percocet 5mg/ 325mg Tablet) 2 tab Q4HP PRN PO MODERATE PAIN (PS 5-7) 10/05/19 14:00 10/06/19 13:50 Potassium Chloride (Micro-K Extencaps) 20 meq DAILY PO 10/06/19 09:00 10/06/19 09:04 Vitamin D (Vitamin D) 1,000 units DAILY PO 10/05/19 09:00 10/06/19 09:03 VS,Fishbone, I+O VS, Fishbone, I+O Laboratory Tests 10/05/19 16:04 10/05/19 21:58 10/06/19 04:27 10/06/19 09:52 Vital Signs Date Time Temp Pulse Resp B/P (MAP) Pulse Ox O2 Delivery O2 Flow Rate FiO2 10/06/19 13:50 16 10/06/19 12:00 97.4 100 132/65 (87) 95 Room Air 10/05/19 13:23 2 I&O- Last 24 Hours up to 6 AM 10/06/19 06:00 Intake Total 1490 ml Output Total 825 ml Balance 665 ml ALCIDES HOWARD MD Oct 06, 2019 14:27
[2019-10-06 17:38] VITALS: BP 136/81
[2019-10-06 22:00] VITALS: BP 139/83
[2019-10-07 06:00] VITALS: BP 139/79
[2019-10-07 06:47] LABS: HEMATOCRIT 30.3 % (36.0-47.0); MEAN CORPUSCULAR HEMOGLOBIN 30.3 pg (27.0-33.0); MEAN CORPUSCULAR VOLUME 91.8 fl (80.0-96.0); PLATELET COUNT, AUTOMATED 181 10^3/uL (150-450); WHITE BLOOD COUNT 8.2 10^3/uL (4.0-10.0)
[2019-10-07 07:16] LABS: ALBUMIN 3.1 GM/DL (3.2-5.2); ALT/SGPT 19 U/L (12-78); BILIRUBIN,TOTAL 0.9 MG/DL (0.2-1.0); BLOOD UREA NITROGEN 21 MG/DL (7-18); CALCIUM LEVEL 8.9 MG/DL (8.8-10.2); CARBON DIOXIDE LEVEL 28 MEQ/L (21-32); CHLORIDE LEVEL 101 MEQ/L (98-107); CREATININE FOR GFR 0.88 MG/DL (0.55-1.30); GLOMERULAR FILTRATION RATE > 60.0 (>32); GLUCOSE, FASTING 107 MG/DL (70-100); POTASSIUM SERUM 3.5 MEQ/L (3.5-5.1); SODIUM LEVEL 134 MEQ/L (136-145); TOTAL PROTEIN 5.9 GM/DL (6.4-8.2)
[2019-10-07] MEDS: POTASSIUM CHLORIDE 10 MEQ SR TABLET PO SCH (08:09)
[2019-10-07] MEDS: VITAMIN D 1,000 INTERNATIONAL UNITS TABLET PO SCH (08:09)
[2019-10-07] MEDS: DOCUSATE SODIUM 100 MG CAP PO SCH ×2 (08:09→20:25)
[2019-10-07] MEDS: hydroCHLOROthiazide 25 MG TAB PO SCH (08:09)
[2019-10-07] MEDS: LOSARTAN 50 MG TAB PO SCH (08:09)
--- NOTE | 2019-10-07 09:40 | IPNPDOC ---
Subjective Date Seen The patient was seen on 10/07/19. Subjective Chief Complaint/HPI Pt this morning without new concerns. She did stand at bedside yesterday, had less pain than she did before. She notes some nasal congestion this morning, denies cough, fevers, chills, recent travel. General: Denies: Fatigue Constitutional: Denies: Chills, Fever Skin: Denies: Rash Pulmonary: Denies: Dyspnea, Cough Cardiovascular: Denies: Chest Pain, Palpitations Gastrointestinal: Denies: Nausea, Vomiting, Abdominal Pain, Diarrhea Neurological: Reports: Weakness Psych: Reports: Mood Normal Objective Physical Examination General Exam: Positive: Alert, No Acute Distress ENT Exam: Positive: Mucous membr. moist/pink Chest Exam: Positive: Clear to auscultation, Normal air movement Heart Exam: Positive: Rate Normal, Regular Rhythm, Normal S1, Normal S2; Negative: Murmurs, Rubs Telemetry: Positive: No significant arrhythmia Abdomen Exam: Positive: Normal bowel sounds, Soft; Negative: Tenderness, Hepatospenomegaly Extremity Exam: Positive: Other (Pain with gentle palpation of the ant LLE); Negative: Edema Psych Exam: Positive: Mental status NL, Mood NL, Oriented x 3 Assessment /Plan Problems (1) Iliopsoas muscle hematoma Status: Acute Problem Text: 10/06 Hgb stable, pt needs PT to clear her before DC, requested OT consult which as ordered. 10/05 Cont with Hgb q6h, has orders through tomorrow morning. Hgb stable overnight at 10.4, dropped slightly yest afternoon/evening. Underwent angiogram with Dr Portillo yesterday, await report. Pt has PCU orders, can start PT today if OK with Dr Portillo. 10/04 H/H q 6 hrs. IF hgb trends down any further, will tranfuse. Consent signed. (2) Unable to ambulate Status: Acute Problem Text: 10/06 PT/OT ordered. 10/05 PT to start 10/05 after hematoma treated with IR (3) Hypertension Status: Acute Problem Text: Continue home dose of HCTZ and Losartan. BP elevated today most likely due to pain Plan/VTE VTE Prophylaxis Ordered?: No VTE Exclusion Pharmacological: Active Bleeding VS, I&O, 24H, Fishbone Vital Signs/I&O Vital Signs Date Time Temp Pulse Resp B/P (MAP) Pulse Ox O2 Delivery O2 Flow Rate FiO2 10/07/19 08:09 139/79 10/07/19 06:00 97.4 61 20 95 10/06/19 23:19 Room Air 10/05/19 13:23 2 I&O- Last 24 Hours up to 6 AM 10/07/19 06:00 Intake Total 1200 ml Output Total 700 ml Balance 500 ml Laboratory Data 24H LABS Laboratory Tests 2 10/07/19 06:28: Nucleated Red Blood Cells % (auto) 0.0, Anion Gap 5L, Glomerular Filtration Rate > 60.0, Calcium Level 8.9, Total Bilirubin 0.9, Aspartate Amino Transf (AST/SGOT) 30, Alanine Aminotransferase (ALT/SGPT) 19, Alkaline Phosphatase 45, Total Protein 5.9L, Albumin 3.1L, Albumin/Globulin Ratio 1.11 CBC/BMP Laboratory Tests 10/06/19 09:52 10/06/19 16:17 10/06/19 22:14 10/07/19 06:28 STEWART HWANG PA-C Oct 07, 2019 09:40
[2019-10-07 10:00] VITALS: BP 141/81
[2019-10-07 14:00] VITALS: BP 137/81
[2019-10-07] MEDS: MORPHINE 2 MG/ML 1ML VIAL (J2270) IV PRN (17:44)
[2019-10-07 18:00] VITALS: BP 134/85
[2019-10-07] MEDS: PERCOCET 5MG/325MG TAB PO PRN (18:18)
[2019-10-07 22:00] VITALS: BP 125/79
[2019-10-08 02:00] VITALS: BP 130/81
[2019-10-08 06:00] VITALS: BP 144/86
[2019-10-08 06:24] LABS: HEMATOCRIT 29.5 % (36.0-47.0); HEMOGLOBIN 9.9 g/dl (12.0-15.5); MEAN CORPUSCULAR HEMOGLOBIN 30.7 pg (27.0-33.0); MEAN CORPUSCULAR HGB CONC 33.6 g/dl (32.0-36.5); MEAN CORPUSCULAR VOLUME 91.3 fl (80.0-96.0); PLATELET COUNT, AUTOMATED 173 10^3/uL (150-450); RED BLOOD COUNT 3.23 10^6/uL (4.00-5.40); WHITE BLOOD COUNT 8.1 10^3/uL (4.0-10.0)
[2019-10-08 06:45] LABS: ALBUMIN 2.9 GM/DL (3.2-5.2); ALT/SGPT 21 U/L (12-78); BILIRUBIN,TOTAL 0.9 MG/DL (0.2-1.0); BLOOD UREA NITROGEN 22 MG/DL (7-18); CARBON DIOXIDE LEVEL 27 MEQ/L (21-32); CHLORIDE LEVEL 101 MEQ/L (98-107); CREATININE FOR GFR 0.84 MG/DL (0.55-1.30); GLOMERULAR FILTRATION RATE > 60.0 (>32); GLUCOSE, FASTING 107 MG/DL (70-100); POTASSIUM SERUM 3.3 MEQ/L (3.5-5.1); SODIUM LEVEL 134 MEQ/L (136-145); TOTAL PROTEIN 6.3 GM/DL (6.4-8.2)
[2019-10-08] MEDS: DOCUSATE SODIUM 100 MG CAP PO SCH (08:40)
[2019-10-08] MEDS: PERCOCET 5MG/325MG TAB PO PRN (08:46)
[2019-10-08 08:47] VITALS: BP 144/86
[2019-10-08] MEDS: LOSARTAN 50 MG TAB PO SCH (08:47)
[2019-10-08] MEDS: POTASSIUM CHLORIDE 10 MEQ SR TABLET PO SCH (08:47)
[2019-10-08] MEDS: VITAMIN D 1,000 INTERNATIONAL UNITS TABLET PO SCH (08:47)
[2019-10-08] MEDS: hydroCHLOROthiazide 25 MG TAB PO SCH (08:47)
[2019-10-08 10:00] VITALS: BP 132/83
--- NOTE | 2019-10-08 12:28 | IPNPDOC ---
Subjective Date Seen The patient was seen on 10/08/19. Objective Physical Examination General Exam: Positive: Alert, No Acute Distress ENT Exam: Positive: Mucous membr. moist/pink Chest Exam: Positive: Clear to auscultation, Normal air movement Heart Exam: Positive: Rate Normal, Regular Rhythm, Normal S1, Normal S2; Negative: Murmurs, Rubs Telemetry: Positive: No significant arrhythmia Abdomen Exam: Positive: Normal bowel sounds, Soft; Negative: Tenderness, Hepatospenomegaly Extremity Exam: Positive: Other (Pain with gentle palpation of the ant LLE); Negative: Edema Psych Exam: Positive: Mental status NL, Mood NL, Oriented x 3 Assessment /Plan Problems (1) Iliopsoas muscle hematoma Status: Acute Problem Text: 10/06 Hgb stable, pt needs PT to clear her before DC, requested OT consult which as ordered. 10/05 Cont with Hgb q6h, has orders through tomorrow morning. Hgb stable overnight at 10.4, dropped slightly yest afternoon/evening. Underwent angiogram with Dr Portillo yesterday, await report. Pt has PCU orders, can start PT today if OK with Dr Portillo. 10/04 H/H q 6 hrs. IF hgb trends down any further, will tranfuse. Consent signed. (2) Unable to ambulate Status: Acute Problem Text: 10/06 PT/OT ordered. 10/05 PT to start 10/05 after hematoma treated with IR (3) Hypertension Status: Acute Problem Text: Continue home dose of HCTZ and Losartan. BP elevated today most likely due to pain Plan/VTE VTE Prophylaxis Ordered?: No VTE Exclusion Pharmacological: Active Bleeding VS, I&O, 24H, Fishbone Vital Signs/I&O Vital Signs Date Time Temp Pulse Resp B/P (MAP) Pulse Ox O2 Delivery O2 Flow Rate FiO2 10/08/19 10:00 98.5 97 19 132/83 (99) 93 Room Air 10/05/19 13:23 2 I&O- Last 24 Hours up to 6 AM 10/08/19 06:00 Intake Total 300 ml Output Total 1275 ml Balance -975 ml Laboratory Data 24H LABS Laboratory Tests 2 10/08/19 06:04: Nucleated Red Blood Cells % (auto) 0.0, Anion Gap 6L, Glomerular Filtration Rate > 60.0, Calcium Level 9.0, Total Bilirubin 0.9, Aspartate Amino Transf (AST/SGOT) 25, Alanine Aminotransferase (ALT/SGPT) 21, Alkaline Phosphatase 48, Total Protein 6.3L, Albumin 2.9L, Albumin/Globulin Ratio 0.85L CBC/BMP Laboratory Tests 10/08/19 06:04 Romeo Potts MD Oct 08, 2019 12:28
--- NOTE | 2019-10-08 13:17 | DS.PDOC ---
Discharge Summary General Date of Admission Oct 05, 2019 at 03:38 Date of Discharge 10/08/19 Primary Care Physician: Cruz Sun MD Attending Physician: Romeo Potts MD Specialist/Consultants Involve: ALCIDES HOWARD MD Discharge Summary PROCEDURES PERFORMED DURING STAY: [None]. ADMITTING DIAGNOSES: 1. . DISCHARGE DIAGNOSES: 1. . COMPLICATIONS/CHIEF COMPLAINT: Iliopsoas Muscle Hematoma. HISTORY OF PRESENT ILLNESS: . HOSPITAL COURSE: . DISCHARGE MEDICATIONS: Please see below. ALLERGIES: Please see below. PHYSICAL EXAMINATION ON DISCHARGE: VITAL SIGNS: Please see below. GENERAL: HEENT: NECK: CARDIOVASCULAR EXAMINATION: RESPIRATORY EXAMINATION: ABDOMINAL EXAMINATION: EXTREMITIES: SKIN: NEUROLOGICAL EXAMINATION: PSYCHIATRIC EXAMINATION: LABORATORY DATA: Please see below. IMAGING: PROGNOSIS: ACTIVITY: [As tolerated]. DIET: DISCHARGE PLAN: DISPOSITION: . DISCHARGE INSTRUCTIONS: 1. . ITEMS TO FOLLOWUP ON ON OUTPATIENT: 1. . DISCHARGE CONDITION: [Stable]. TIME SPENT ON DISCHARGE: Greater than minutes. Vital Signs/I&Os Vital Signs Date Time Temp Pulse Resp B/P (MAP) Pulse Ox O2 Delivery O2 Flow Rate FiO2 10/08/19 10:00 98.5 97 19 132/83 (99) 93 Room Air 10/05/19 13:23 2 I&O- Last 24 Hours up to 6 AM 10/08/19 06:00 Intake Total 300 ml Output Total 1275 ml Balance -975 ml Laboratory Data Labs 24H Laboratory Tests 2 10/08/19 06:04: Nucleated Red Blood Cells % (auto) 0.0, Anion Gap 6L, Glomerular Filtration Rate > 60.0, Calcium Level 9.0, Total Bilirubin 0.9, Aspartate Amino Transf (AST/SGOT) 25, Alanine Aminotransferase (ALT/SGPT) 21, Alkaline Phosphatase 48, Total Protein 6.3L, Albumin 2.9L, Albumin/Globulin Ratio 0.85L CBC/BMP Laboratory Tests 10/08/19 06:04 Discharge Medications Scheduled Cholecalciferol (Vitamin D3) (Vitamin D3) 1,000 Unit Tablet, 1,000 UNITS PO DAILY, (Reported) Losartan/Hydrochlorothiazide (Losartan-Hctz 100-25 mg Tab) 1 Each Tablet, 1 TAB PO DAILY, (Reported) Scheduled PRN Acetaminophen (Tylenol Extra Strength) 500 Mg Tablet, 500 MG PO Q4H PRN for PAIN / FEVER, (Reported) Hydrocortisone (Hydrocortisone) 28 Gm Cream..g., 1 DOSE EXT BID PRN for RASH, (Reported) Nystatin (Nystatin Powder) 15 Gm Powder, 1 DOSE TOP BID PRN for RASH, (Reported) USES ON GROIN AREA NEEDED Allergies Coded Allergies: No Known Allergies (Unverified , 01/21/18) Romeo Potts MD Oct 08, 2019 13:17
[2019-10-08] MEDS ORDERED: PERCOCET PO (13:23)
== END 2019-10-08 14:35 | disposition home or self-care (01) | DRG 556 ==
LOC: M ED 23:14 → M ED INP 10-05 03:38 → ENRESERVDT 10-05 07:46 → EDRESERV 10-05 07:46 → ENRESERVTM 10-05 07:46 → M ICU 10-05 09:06 → M MSPAV 10-06 17:05
PROVIDERS: ADMIT Internal Medicine; ATTEND Family Medicine
PROC: B40GYZZ Plain Radiography of Left Lower Extremity Arteries using Other Contrast (ICD-10-PCS; 2019-10-05)
PROC: B40 Imaging, Lower Arteries, Plain Radiography (ICD-10-PCS; 2019-10-05)
PROC: B400YZZ Plain Radiography of Abdominal Aorta using Other Contrast (ICD-10-PCS; principal; 2019-10-05 11:00)
DX: M79.81 Nontraumatic hematoma of soft tissue (principal); I10 Essential (primary) hypertension; E83.52 Hypercalcemia; M21.371 Foot drop, right foot; R73.01 Impaired fasting glucose; K80.20 Calculus of gallbladder without cholecystitis without obstruction; M47.816 Spondylosis without myelopathy or radiculopathy, lumbar region; K57.90 Diverticulosis of intestine, part unspecified, without perforation or abscess without bleeding; R26.89 Other abnormalities of gait and mobility; Z85.828 Personal history of other malignant neoplasm of skin; Z98.49 Cataract extraction status, unspecified eye; Z87.891 Personal history of nicotine dependence; Z79.899 Other long term (current) drug therapy

== ENCOUNTER → 2021-03-18 | Outpatient (REF) | payer MEDICARE ==
[~2021-03-18] MED LIST changes: +ACET-897 PO; +D31000TA2 PO; +LOSA100T5 PO; +NYST1POW9 TOP; +PERCOCET PO; +SFHHYD1CR EXT
[2021-03-18 12:39] LABS: BASO % 0.3 % (0.0-1.0); EOS # 0.1 10^3/uL (0.0-0.5); EOS % 1.2 % (0.0-3.0); HEMATOCRIT 38.4 % (36.0-47.0); HEMOGLOBIN 12.7 g/dl (12.0-15.5); LYMPH # 2.1 10^3/uL (1.5-5.0); LYMPH % 30.6 % (24.0-44.0); MEAN CORPUSCULAR HEMOGLOBIN 29.9 pg (27.0-33.0); MEAN CORPUSCULAR HGB CONC 33.1 g/dl (32.0-36.5); MEAN CORPUSCULAR VOLUME 90.4 fl (80.0-96.0); MONO # 0.6 10^3/uL (0.0-0.8); MONO % 9.3 % (2.0-8.0); NEUTROPHILS % 58.3 % (36.0-66.0); PLATELET COUNT, AUTOMATED 228 10^3/uL (150-450); RED BLOOD COUNT 4.25 10^6/uL (4.00-5.40); WHITE BLOOD COUNT 6.8 10^3/uL (4.0-10.0)
[2021-03-18 13:04] LABS: ALBUMIN 3.7 GM/DL (3.2-5.2); ALT/SGPT 21 U/L (12-78); BILIRUBIN,TOTAL 0.6 MG/DL (0.2-1.0); BLOOD UREA NITROGEN 19 MG/DL (7-18); CALCIUM LEVEL 10.5 MG/DL (8.8-10.2); CARBON DIOXIDE LEVEL 28 MEQ/L (21-32); CHLORIDE LEVEL 99 MEQ/L (98-107); CHOLESTEROL LEVEL 232 MG/DL (<200); CHOLESTEROL RISK RATIO 3.462 (<5); CREATININE FOR GFR 0.88 MG/DL (0.55-1.30); GLOMERULAR FILTRATION RATE > 60.0 (>32); GLUCOSE, FASTING 106 MG/DL (70-100); HDL CHOLESTEROL 67 MG/DL (>40); LDL CHOLESTEROL 141 MG/DL (<100); NON-HDL-C 165 MG/DL; SODIUM LEVEL 134 MEQ/L (136-145); TOTAL PROTEIN 6.9 GM/DL (6.4-8.2); TRIGLYCERIDES LEVEL 122 MG/DL (<150)
[2021-03-18 13:22] LABS: TOTAL 25(OH) VITAMIN D 32.9 NG/ML (30.0-100.0)
== END ==
LOC: M SFHCADAM 08:51
PROVIDERS: ATTEND Physician Assistant Medical
DX: E55.9 Vitamin D deficiency, unspecified (principal); I10 Essential (primary) hypertension; R73.01 Impaired fasting glucose

== ENCOUNTER → 2021-03-20 | Outpatient (REF) | payer MEDICARE ==
[2021-03-20 13:34] LABS: CREATININE, URINE 59.9 MG/DL; MALB URINE SIEMENS < 5.0 MG/L; MAU/CREAT RATIO 8.3 MCG/MG (0.0-30.0)
== END ==
LOC: M SFHCADAM 12:25
PROVIDERS: ATTEND Physician Assistant Medical
DX: E55.9 Vitamin D deficiency, unspecified (principal); I10 Essential (primary) hypertension; R73.01 Impaired fasting glucose

== ENCOUNTER → 2023-12-31 | Outpatient (REF) | payer MEDICARE ==
[~2023-12-31] MED LIST changes: -D31000TA2 PO; +VITA100093 PO
[2023-12-31 15:55] LABS: BASO % 0.4 % (0.0-1.0); EOS # 0.1 10^3/uL (0.0-0.5); HEMATOCRIT 38.5 % (36.0-47.0); HEMOGLOBIN 13.1 g/dl (12.0-15.5); LYMPH # 2.5 10^3/uL (1.5-5.0); LYMPH % 31.1 % (24.0-44.0); MEAN CORPUSCULAR HEMOGLOBIN 31.5 pg (27.0-33.0); MEAN CORPUSCULAR VOLUME 92.5 fl (80.0-96.0); MONO # 0.6 10^3/uL (0.0-0.8); NEUTROPHILS # 4.8 10^3/uL (1.5-8.5); NEUTROPHILS % 60.1 % (36.0-66.0); PLATELET COUNT, AUTOMATED 226 10^3/uL (150-450); RED BLOOD COUNT 4.16 10^6/uL (4.00-5.40)
[2023-12-31 16:09] LABS: ALBUMIN 4.2 G/DL (3.2-5.2); ALKALINE PHOSPHATASE 53 U/L (46-116); ALT/SGPT 19 U/L (7.0-40); AST/SGOT 16 U/L (<34); BILIRUBIN,TOTAL 0.6 MG/DL (0.3-1.2); BLOOD UREA NITROGEN 22 MG/DL (9-23); CARBON DIOXIDE LEVEL 26 MMOL/L (20-31); CHLORIDE LEVEL 95 MMOL/L (98-107); CHOLESTEROL LEVEL 239 MG/DL (<200); CHOLESTEROL RISK RATIO 4.15 (<5); CREATININE FOR GFR 0.74 MG/DL (0.55-1.30); GLOMERULAR FILTRATION RATE > 60.0 (>32); GLUCOSE, FASTING 101 MG/DL (74-106); HDL CHOLESTEROL 57.5 MG/DL (>40); LDL CHOLESTEROL 140.1 MG/DL (<100); NON-HDL-C 181.5 MG/DL; POTASSIUM SERUM 3.8 MMOL/L (3.5-5.1); SODIUM LEVEL 129 MMOL/L (136-145); TOTAL PROTEIN 7.2 G/DL (5.7-8.2); TRIGLYCERIDES LEVEL 207 MG/DL (<150)
[2023-12-31 16:11] LABS: THYROID STIMULATING HORMONE 2.575 uIU/ML (0.55-4.78)
== END ==
LOC: M LAB REF 15:05
PROVIDERS: ATTEND Physician Assistant Medical
DX: I10 Essential (primary) hypertension (principal)

== ENCOUNTER → 2024-01-22 | Outpatient (REF) | payer MEDICARE ==
[2024-01-22 12:15] LABS: BLOOD UREA NITROGEN 25 MG/DL (9-23); CALCIUM LEVEL 10.1 MG/DL (8.3-10.6); CARBON DIOXIDE LEVEL 24 MMOL/L (20-31); CHLORIDE LEVEL 103 MMOL/L (98-107); GLOMERULAR FILTRATION RATE > 60.0 (>32); GLUCOSE, FASTING 105 MG/DL (74-106); POTASSIUM SERUM 3.9 MMOL/L (3.5-5.1); SODIUM LEVEL 135 MMOL/L (136-145)
== END ==
LOC: M LAB REF 11:30
PROVIDERS: ATTEND Physician Assistant Medical
DX: I87.2 Venous insufficiency (chronic) (peripheral) (principal)

== ENCOUNTER → 2024-02-26 | Outpatient (REF) | payer MEDICARE ==
[2024-02-26 13:40] LABS: BLOOD UREA NITROGEN 22 MG/DL (9-23); CALCIUM LEVEL 10.4 MG/DL (8.3-10.6); CARBON DIOXIDE LEVEL 23 MMOL/L (20-31); CHLORIDE LEVEL 102 MMOL/L (98-107); CREATININE FOR GFR 0.83 MG/DL (0.55-1.30); GLOMERULAR FILTRATION RATE > 60.0 (>32); GLUCOSE, FASTING 94 MG/DL (74-106); POTASSIUM SERUM 4.6 MMOL/L (3.5-5.1); SODIUM LEVEL 133 MMOL/L (136-145)
== END ==
LOC: M LAB REF 12:06
PROVIDERS: ATTEND Physician Assistant Medical
DX: I10 Essential (primary) hypertension (principal); E78.1 Pure hyperglyceridemia

== ENCOUNTER → 2024-03-01 | Outpatient (REF) | payer MEDICARE ==
[2024-03-01 17:59] LABS: APPEARANCE, URINE CLEAR (CLEAR); BACTERIA, URINE AUTO NEGATIVE (NEGATIVE); BILIRUBIN, URINE AUTO NEGATIVE (NEGATIVE); BLOOD, URINE BLOOD NEGATIVE (NEGATIVE); COLOR, URINE STRAW (YELLOW); GLUCOSE, URINE (UA) AUTO NEGATIVE (NEGATIVE); KETONE, URINE AUTO NEGATIVE (NEGATIVE); LEUKOCYTE ESTERASE, URINE AUTO 1+ (NEGATIVE); NITRITE, URINE AUTO NEGATIVE (NEGATIVE); PROTEIN, URINE AUTO NEGATIVE (NEGATIVE); RBC, URINE AUTO 2 /HPF (0-3); SPECIFIC GRAVITY URINE AUTO 1.008 (1.002-1.035); SQUAMOUS EPITHELIAL CELL UR AU 2 /HPF (0-6); UROBILINOGEN, URINE AUTO 0.2 mg/dL (0.0-2.0); WBC, URINE AUTO 2 /HPF (0-3)
== END ==
LOC: M SFHCADAM 17:04
PROVIDERS: ATTEND Physician Assistant Medical
DX: R82.90 Unspecified abnormal findings in urine (principal)

== ENCOUNTER 2024-03-12 14:36 | Inpatient (IN) | payer MEDICARE ==
[~2024-03-12] VITALS: Ht 167.6 cm; Wt 90.9 kg
[2024-03-12] MEDS: NS 1,000 ML IV ONE (15:14)
[2024-03-12] MEDS: LIDOCAINE 2% 5ML JELLY UROJET TOP ONE (15:18)
[2024-03-12 15:27] LABS: BASO % 0.1 % (0.0-1.0); HEMATOCRIT 40.4 % (36.0-47.0); HEMOGLOBIN 13.3 g/dl (12.0-15.5); LYMPH # 0.9 10^3/uL (1.5-5.0); LYMPH % 5.5 % (24.0-44.0); MEAN CORPUSCULAR HEMOGLOBIN 30.6 pg (27.0-33.0); MEAN CORPUSCULAR HGB CONC 32.9 g/dl (32.0-36.5); MEAN CORPUSCULAR VOLUME 92.9 fl (80.0-96.0); MONO # 0.7 10^3/uL (0.0-0.8); MONO % 4.3 % (2.0-8.0); NEUTROPHILS # 14.3 10^3/uL (1.5-8.5); NEUTROPHILS % 89.7 % (36.0-66.0); PLATELET COUNT, AUTOMATED 237 10^3/uL (150-450); RED BLOOD COUNT 4.35 10^6/uL (4.00-5.40)
[2024-03-12 15:35] LABS: ALKALINE PHOSPHATASE 74 U/L (46-116); ALT/SGPT 25 U/L (7.0-40); AST/SGOT 42 U/L (<34); BILIRUBIN,DIRECT 0.1 MG/DL (<0.4); BILIRUBIN,TOTAL 0.6 MG/DL (0.3-1.2); BLOOD UREA NITROGEN 23 MG/DL (9-23); CALCIUM LEVEL 10.7 MG/DL (8.3-10.6); CARBON DIOXIDE LEVEL 20 MMOL/L (20-31); CHLORIDE LEVEL 101 MMOL/L (98-107); CREATININE FOR GFR 0.73 MG/DL (0.55-1.30); GLOMERULAR FILTRATION RATE > 60.0 (>32); GLUCOSE, FASTING 150 MG/DL (74-106); LIPASE 30 U/L (12-53); POTASSIUM SERUM 4.7 MMOL/L (3.5-5.1); SODIUM LEVEL 132 MMOL/L (136-145); TOTAL PROTEIN 7.4 G/DL (5.7-8.2)
[2024-03-12] MEDS: GASTROGRAFIN SOLUTION 30ML PO SCH (16:15)
[2024-03-12] MEDS ORDERED: ISOVUE-370 76% 100ML VIAL As Ordered ONE (16:34)
[2024-03-12] MEDS ORDERED: VALS1TAB67 PO (17:31)
[2024-03-12] MEDS ORDERED: SPIR-10 PO (17:31)
[2024-03-12] MEDS ORDERED: AMOX500C (17:31)
[2024-03-12] MEDS ORDERED: LOPE2TAB12 PO (18:51)
[2024-03-12] MEDS ORDERED: NYAM10003 TOP (18:51)
[2024-03-12] MEDS ORDERED: HOME MED LIST COMPLETE! XX SCH (18:55)
[2024-03-12] MEDS: CIPROFLOXACIN 400 MG in IV 1 EA IV SCH (20:00)
[2024-03-13] MEDS: ONDANSETRON 4MG 2ML VIAL IV ONE (00:06)
[2024-03-13] MEDS: metroNIDAZOLE 500 MG in IV 1 EA IV SCH (00:06)
[2024-03-13] MEDS: amLODIPine 5 MG TAB PO SCH (00:07)
[2024-03-13 01:35] VITALS: BP 152/84; TEMP 97.7; O2SAT 99
[2024-03-13 06:44] LABS: BASO % 0.2 % (0.0-1.0); EOS % 0.2 % (0.0-3.0); HEMATOCRIT 37.2 % (36.0-47.0); HEMOGLOBIN 11.9 g/dl (12.0-15.5); LYMPH # 1.6 10^3/uL (1.5-5.0); LYMPH % 13.2 % (24.0-44.0); MEAN CORPUSCULAR HEMOGLOBIN 30.5 pg (27.0-33.0); MEAN CORPUSCULAR VOLUME 95.4 fl (80.0-96.0); MONO # 0.9 10^3/uL (0.0-0.8); MONO % 7.6 % (2.0-8.0); NEUTROPHILS # 9.7 10^3/uL (1.5-8.5); NEUTROPHILS % 78.4 % (36.0-66.0); PLATELET COUNT, AUTOMATED 213 10^3/uL (150-450); WHITE BLOOD COUNT 12.4 10^3/uL (4.0-10.0)
[2024-03-13 07:10] LABS: BLOOD UREA NITROGEN 16 MG/DL (9-23); CALCIUM LEVEL 9.3 MG/DL (8.3-10.6); CARBON DIOXIDE LEVEL 25 MMOL/L (20-31); CHLORIDE LEVEL 103 MMOL/L (98-107); CREATININE FOR GFR 0.77 MG/DL (0.55-1.30); GLOMERULAR FILTRATION RATE > 60.0 (>32); GLUCOSE, FASTING 98 MG/DL (74-106); POTASSIUM SERUM 3.7 MMOL/L (3.5-5.1); SODIUM LEVEL 134 MMOL/L (136-145)
[2024-03-13] MEDS: FIDAXOMICIN 200 MG TAB (DIFICID) PO SCH (09:53)
[2024-03-13] MEDS: VALSARTAN 80 MG TAB (DIOVAN) PO SCH (09:54)
[2024-03-13] MEDS: ENOXAPARIN 40MG/0.4ML SYRINGE (J1650 PER 10MG) SC SCH (09:54)
[2024-03-13 12:00] VITALS: BP 134/80; TEMP 97.7; O2SAT 94
[2024-03-13] MEDS: ACETAMINOPHEN TAB 650MG DOSE (2X325MG) PO PRN (18:11)
[2024-03-13 20:03] VITALS: BP 142/83; TEMP 97.7; O2SAT 94
[2024-03-14 04:06] VITALS: BP 122/71; TEMP 97.5; O2SAT 97
[2024-03-14 06:24] LABS: BASO % 0.3 % (0.0-1.0); EOS # 0.2 10^3/uL (0.0-0.5); EOS % 1.4 % (0.0-3.0); HEMATOCRIT 34.9 % (36.0-47.0); HEMOGLOBIN 11.4 g/dl (12.0-15.5); LYMPH # 2.2 10^3/uL (1.5-5.0); MEAN CORPUSCULAR HEMOGLOBIN 31.1 pg (27.0-33.0); MEAN CORPUSCULAR HGB CONC 32.7 g/dl (32.0-36.5); MEAN CORPUSCULAR VOLUME 95.1 fl (80.0-96.0); MONO # 0.8 10^3/uL (0.0-0.8); MONO % 6.8 % (2.0-8.0); NEUTROPHILS # 8.2 10^3/uL (1.5-8.5); NEUTROPHILS % 72.2 % (36.0-66.0); PLATELET COUNT, AUTOMATED 222 10^3/uL (150-450); RED BLOOD COUNT 3.67 10^6/uL (4.00-5.40); WHITE BLOOD COUNT 11.4 10^3/uL (4.0-10.0)
[2024-03-14 06:51] LABS: BLOOD UREA NITROGEN 16 MG/DL (9-23); CALCIUM LEVEL 9.3 MG/DL (8.3-10.6); CARBON DIOXIDE LEVEL 26 MMOL/L (20-31); CHLORIDE LEVEL 103 MMOL/L (98-107); CREATININE FOR GFR 0.76 MG/DL (0.55-1.30); GLOMERULAR FILTRATION RATE > 60.0 (>32); GLUCOSE, FASTING 92 MG/DL (74-106); POTASSIUM SERUM 3.9 MMOL/L (3.5-5.1); SODIUM LEVEL 133 MMOL/L (136-145)
[2024-03-14 12:00] VITALS: BP 151/84; TEMP 97.2; O2SAT 94
[2024-03-14 20:54] VITALS: BP 142/71; TEMP 97.9
[2024-03-15 04:46] VITALS: TEMP 98.1
[2024-03-15 06:13] VITALS: BP 150/73; O2SAT 95
[2024-03-15 06:43] LABS: BASO % 0.3 % (0.0-1.0); EOS # 0.1 10^3/uL (0.0-0.5); EOS % 1.2 % (0.0-3.0); HEMATOCRIT 36.1 % (36.0-47.0); HEMOGLOBIN 11.9 g/dl (12.0-15.5); LYMPH # 1.6 10^3/uL (1.5-5.0); LYMPH % 13.9 % (24.0-44.0); MEAN CORPUSCULAR HEMOGLOBIN 30.8 pg (27.0-33.0); MEAN CORPUSCULAR VOLUME 93.5 fl (80.0-96.0); MONO # 0.9 10^3/uL (0.0-0.8); MONO % 7.5 % (2.0-8.0); NEUTROPHILS # 8.9 10^3/uL (1.5-8.5); NEUTROPHILS % 76.6 % (36.0-66.0); PLATELET COUNT, AUTOMATED 227 10^3/uL (150-450); RED BLOOD COUNT 3.86 10^6/uL (4.00-5.40); WHITE BLOOD COUNT 11.7 10^3/uL (4.0-10.0)
[2024-03-15 07:21] LABS: BLOOD UREA NITROGEN 16 MG/DL (9-23); CALCIUM LEVEL 9.2 MG/DL (8.3-10.6); CARBON DIOXIDE LEVEL 24 MMOL/L (20-31); CHLORIDE LEVEL 103 MMOL/L (98-107); CREATININE FOR GFR 0.69 MG/DL (0.55-1.30); GLOMERULAR FILTRATION RATE > 60.0 (>32); GLUCOSE, FASTING 117 MG/DL (74-106); POTASSIUM SERUM 3.8 MMOL/L (3.5-5.1); SODIUM LEVEL 134 MMOL/L (136-145)
[2024-03-15] MEDS ORDERED: FIDA200TA PO (07:58)
[2024-03-15] MEDS ORDERED: PROB250C PO (07:59)
[2024-03-15] MEDS ORDERED: VANC125C3 PO (10:24)
[2024-03-15 10:47] VITALS: BP 150/73
[2024-03-15 12:48] VITALS: BP 163/80; TEMP 97.9; O2SAT 95
== END 2024-03-15 14:10 | disposition home or self-care (01) | DRG 872 ==
LOC: EDBD 14:36 → M ED 14:36 → M ED INP 18:28 → M MS5PR 03-13 02:12
PROVIDERS: ADMIT Internal Medicine Nephrology; ATTEND Internal Medicine
DX: A41.9 Sepsis, unspecified organism (principal); A04.72 Enterocolitis due to Clostridium difficile, not specified as recurrent; E87.1 Hypo-osmolality and hyponatremia; E86.0 Dehydration; I10 Essential (primary) hypertension; R33.9 Retention of urine, unspecified; R73.01 Impaired fasting glucose; M54.17 Radiculopathy, lumbosacral region; M21.379 Foot drop, unspecified foot; Z79.899 Other long term (current) drug therapy; Z98.41 Cataract extraction status, right eye; Z98.42 Cataract extraction status, left eye; Z90.79 Acquired absence of other genital organ(s); Z85.828 Personal history of other malignant neoplasm of skin; Z99.3 Dependence on wheelchair; Z11.52 Encounter for screening for COVID-19; R29.6 Repeated falls; Z66 Do not resuscitate

== ENCOUNTER 2025-02-05 01:46 | Emergency (ER) | payer MEDICARE ==
[~2025-02-05] VITALS: Ht 167.6 cm; Wt 76.0 kg
[~2025-02-05 01:46] MED LIST changes: +AMOX500C; +FIDA200TA PO; +LOPE2TAB12 PO; +NYAM10003 TOP; +NYST1POW3 TOP; -NYST1POW9 TOP; +PROB250C PO; +SPIR-10 PO; +VALS1TAB67 PO; +VANC125C13 PO
[2025-02-05 02:50] LABS: BASO # 0.0 10^3/uL (0.0-0.2); BASO % 0.1 % (0.0-1.0); EOS # 0.0 10^3/uL (0.0-0.5); EOS % 0.0 % (0.0-3.0); LYMPH # 1.2 10^3/uL (1.5-5.0); LYMPH % 10.5 % (24.0-44.0); MONO # 0.4 10^3/uL (0.0-0.8); MONO % 3.4 % (2.0-8.0); NEUTROPHILS # 9.7 10^3/uL (1.5-8.5); NEUTROPHILS % 85.6 % (36.0-66.0); PLATELET COUNT, AUTOMATED 219 10^3/uL (150-450)
[2025-02-05] MEDS: ONDANSETRON 4MG 2ML VIAL IV ONE (02:59)
[2025-02-05] MEDS: MORPHINE 2 MG/ML 1 ML VIAL IV ONE (03:10)
[2025-02-05 03:20] LABS: ALT/SGPT 10.0 U/L (7.0-40); AST/SGOT 22.0 U/L (<34); CALCIUM LEVEL 10.7 MG/DL (8.3-10.6); CARBON DIOXIDE LEVEL 23.0 MMOL/L (20-31); CHLORIDE LEVEL 99.0 MMOL/L (98-107); CREATININE FOR GFR 0.67 MG/DL (0.55-1.30); GLOMERULAR FILTRATION RATE 85.6 (>32); POTASSIUM SERUM 3.4 MMOL/L (3.5-5.1); SODIUM LEVEL 139.0 MMOL/L (136-145)
[2025-02-05] MEDS ORDERED: ISOVUE-370 76% 100 ML VIAL As Ordered ONE (04:36)
[2025-02-05] MEDS ORDERED: MORPHINE 4 MG/ML 1 ML VIAL IV PRN (04:45)
[2025-02-05] MEDS: MORPHINE 2 MG/ML 1 ML VIAL IV PRN (04:55)
[2025-02-05] MEDS: PANTOPRAZOLE 40MG VIAL IV ONE (04:57)
[2025-02-05] MEDS: DICYCLOMINE INJ 20 MG/2 ML IM ONE (05:00)
[2025-02-05 07:43] LABS: KETONE, URINE AUTO RFX TRACE mg/dL (NEGATIVE); MUCUS, URINE RFX SMALL (NEGATIVE); RBC, URINE AUTO RFX 63 /HPF (0-3); SQUAM EPITHELIAL CELL UR AURFX 0 /HPF (0-6)
[2025-02-05 07:44] LABS: LEUKOCYTE ESTERASE UR AUTO RFX 3+ (NEGATIVE); NITRITE, URINE AUTO RFX POSITIVE (NEGATIVE); WBC, URINE AUTO RFX 12 /HPF (0-3)
[2025-02-05] MEDS ORDERED: HOME MED LIST COMPLETE! XX SCH (08:25)
[2025-02-05] MEDS: BACTRIM 160MG/800MG DS TAB PO ONE (09:20)
[2025-02-05 10:00] VITALS: BP 142/78
[2025-02-05] MEDS ORDERED: BACT800T5 PO (10:05)
[2025-02-05 10:15] VITALS: TEMP 98.9; O2SAT 94
== END 2025-02-05 11:30 | disposition home or self-care (01) ==
LOC: M ED 01:46 → EDBD 01:46 → M ED 11:30
DX: T83.011A Breakdown (mechanical) of indwelling urethral catheter, initial encounter (principal); T83.518A Infection and inflammatory reaction due to other urinary catheter, initial encounter; N39.0 Urinary tract infection, site not specified; R10.9 Unspecified abdominal pain; I50.22 Chronic systolic (congestive) heart failure; E55.9 Vitamin D deficiency, unspecified; I11.0 Hypertensive heart disease with heart failure; G12.21 Amyotrophic lateral sclerosis; Z87.891 Personal history of nicotine dependence; Z79.1 Long term (current) use of non-steroidal anti-inflammatories (NSAID)
CPT/HCPCS: 74177; 80053; 81001; 85025; 86850; 86900; 86901; 87088; 87186; 96372; 96374; 96375; 96376; 99284; J0500; J2405; J2470; Q9967

== ENCOUNTER 2025-03-20 10:16 | Emergency (ER) | payer MEDICARE ==
[~2025-03-20] VITALS: Ht 167.6 cm; Wt 77.3 kg
[~2025-03-20 10:16] MED LIST changes: +BACT800T5 PO
[2025-03-20 10:49] LABS: BASO # 0.0 10^3/uL (0.0-0.2); BASO % 0.2 % (0.0-1.0); EOS # 0.0 10^3/uL (0.0-0.5); EOS % 0.0 % (0.0-3.0); LYMPH # 1.6 10^3/uL (1.5-5.0); LYMPH % 18.8 % (24.0-44.0); MONO # 0.4 10^3/uL (0.0-0.8); MONO % 4.6 % (2.0-8.0); NEUTROPHILS # 6.3 10^3/uL (1.5-8.5); NEUTROPHILS % 76.2 % (36.0-66.0); PLATELET COUNT, AUTOMATED 228 10^3/uL (150-450)
[2025-03-20 10:52] LABS: KETONE, URINE AUTO RFX 1+ mg/dL (NEGATIVE); LEUKOCYTE ESTERASE UR AUTO RFX NEGATIVE (NEGATIVE); MUCUS, URINE RFX SMALL (NEGATIVE); NITRITE, URINE AUTO RFX NEGATIVE (NEGATIVE); RBC, URINE AUTO RFX 1 /HPF (0-3); SQUAM EPITHELIAL CELL UR AURFX 0 /HPF (0-6); WBC, URINE AUTO RFX 2 /HPF (0-3); YEAST LIKE CELL URINE AUTO RFX SMALL
[2025-03-20] MEDS: NS 500 ML IV ONE (10:56)
[2025-03-20] MEDS: ONDANSETRON 4MG 2ML VIAL IV ONE (10:56)
[2025-03-20 11:16] LABS: ALT/SGPT 11.0 U/L (7.0-40); AST/SGOT 28.0 U/L (<34); CALCIUM LEVEL 10.9 MG/DL (8.3-10.6); CARBON DIOXIDE LEVEL 22.0 MMOL/L (20-31); CHLORIDE LEVEL 96.0 MMOL/L (98-107); CREATININE FOR GFR 0.58 MG/DL (0.55-1.30); GLOMERULAR FILTRATION RATE 88.6 (>32); POTASSIUM SERUM 3.6 MMOL/L (3.5-5.1); SODIUM LEVEL 132.0 MMOL/L (136-145)
[2025-03-20] MEDS: VALSARTAN 80MG TAB PO ONE (11:18)
[2025-03-20] MEDS ORDERED: HOME MED LIST COMPLETE! XX SCH (13:35)
[2025-03-20] MEDS ORDERED: MECL-209 PO (14:19)
[2025-03-20] MEDS ORDERED: ONDA-282 PO (14:19)
[2025-03-20 14:30] VITALS: BP 166/99; TEMP 96.7; O2SAT 96
== END 2025-03-20 16:06 | disposition home or self-care (01) ==
LOC: M ED 10:16
DX: R11.2 Nausea with vomiting, unspecified (principal); R19.7 Diarrhea, unspecified; H81.399 Other peripheral vertigo, unspecified ear; I42.2 Other hypertrophic cardiomyopathy; I10 Essential (primary) hypertension; Z79.83 Long term (current) use of bisphosphonates; Z79.899 Other long term (current) drug therapy
CPT/HCPCS: 70450; 80048; 80076; 81001; 83690; 85025; 87486; 87581; 87633; 87798; 93005; 96361; 96374; 99284; J2405

== ENCOUNTER → 2025-03-25 | Outpatient (REF) | payer MEDICARE ==
[~2025-03-25] MED LIST changes: +MECL-209 PO; +ONDA-282 PO
== END ==
LOC: M LAB REF 14:40
PROVIDERS: ATTEND Physician Assistant Medical
DX: R19.7 Diarrhea, unspecified (principal)